=== PATIENT | male | born 1965 | race Caucasian/White ===

== ENCOUNTER 2017-10-31 18:47 | Emergency (ER) | payer MEDICAID, SELFPAY ==
[2017-10-31 18:48] VITALS: BP 153/98; PULSE 127; RESP 17; TEMP 35.8; O2SAT 97; BMI 38.7
--- NOTE | 2017-10-31 18:57 | ED.VISSUMM ---
- ER Visit Summary Date of Service: 10/31/17 Chief Complaint: Medication withdrawal History of Present Illness: The patient is a 52 M resents to the emergency department with medication withdrawal. Patient is on tramadol for his chronic pain. He states 3 days ago, he knocked the last 5 days a prescription down the drain when he was shaving. Since then, he began to have nausea, diaphoresis, diarrhea, abdominal cramping. He states he is not able to get his new prescription until 3 days from now. He denies chest pain shortness of breath. He denies any other systemic symptoms. He has not called his primary care who writes his tramadol to let them know. Physical Examination: Vital signs reviewed General: Well-nourished, well-developed Head: Normocephalic, atraumatic Eyes: Pupils equal and reactive, extraocular muscles intact Neck, supple, no lymphadenopathy Heart: Regular rate and rhythm Respiratory: No distress, clear bilaterally Abdomen: Soft, nontender, nondistended, no peritoneal signs Back: Nontender Extremities: Nontender, no edema, no cords Skin: Normal color no rash Neuro: Alert and oriented, no focal or lateralizing deficits Test Results: [] Emergency Department Course and Treatment: Patient presents in medication withdrawal. He is given 1 dose of his tramadol. I did counseling center manager him I would not be able to refill his prescription as this is a controlled substance. I did write him for Bentyl and Zofran to help with his withdrawal. I did counseling center manager him to speak with his primary care physician to see if there is anything differently can be done about refilling his prescription early. He will be discharged home. Treatment Plan: [] Disposition: Discharge Impression: 1. Medication withdrawal This note was generated with [employer] dictation software. It may contain incorrect words, spelling, and punctuation that were not noted in review of the chart prior to signing ED Disposition - Plan for ED Patient: Chief Complaint: General Illness Instructions: ED Withdrawal Narcotic Prescriptions: Ondansetron [Zofran Odt] 4 mg PO Q8H PRN PRN #10 tab PRN Reason: Nausea Dicyclomine HCl [Bentyl] 20 mg PO TIDAC #20 cap Referrals: Jaelyn Lee MD [Primary Care Provider] -
[2017-10-31] MEDS: traMADol 50 MG Tablet 100 MG PO (19:03)
[2017-10-31 19:04] VITALS: BP 148/82; PULSE 117; RESP 20; O2SAT 96
== END 2017-10-31 19:10 | disposition home or self-care (01) ==
LOC: ED 19:06
PROVIDERS: Emergency Provider Emergency Medicine; Family Provider Internal Medicine; PCP Internal Medicine
DX: F11.23 Opioid dependence with withdrawal (principal); G89.29 Other chronic pain; Z79.899 Other long term (current) drug therapy
CPT/HCPCS: 99283

== ENCOUNTER 2018-08-05 16:54 | Emergency (ER) | payer MEDICAID, SELFPAY ==
[2018-08-05 16:55] VITALS: BP 147/82; PULSE 112; RESP 20; TEMP 35.5; O2SAT 97; BMI 36.9
--- NOTE | 2018-08-05 17:15 | ED.DCSUM_ITS ---
History of Present Illness Chief Complaint: Fall Detail of Chief Complaint: Central low back pain Informant: Patient Limited by: - - Cognitive impairment Onset: Weeks Timing: Intermittent Quality: Patient with frequent falls. Most recent fall 8 days ago. Location: Residents Current Severity: Mild Maximum Severity: Moderate Worsened by: Uncertain Relieved by: Nothing Associated Symptoms: Nothing Narrative: Patient is a middle-aged male who lives by himself who presents because of pain that he localizes to the sacral region. He reports last fall was 8 days ago. He has had several falls over the past 1-2 months. He has lived alone for the past 8 months since the of his mother. He has no form of transportation. He does not make his own meals. He states he eats when he goes out to get food otherwise he does not. He has no one that checks on him. His only complaint is low back pain. Prior similar symptoms: No Recent Illness/Hospitalization: No - Past Medical History (1) Acute exacerbation of chronic low back pain Status: Chronic (2) Diabetic polyneuropathy Status: Chronic (3) Tremor Status: Chronic (4) HTN (hypertension) Status: Chronic (5) History of Ischemic Stroke Status: Chronic (6) Type II diabetes mellitus, uncontrolled Status: Chronic Past Medical History - Allergies and Home Meds Allergies/Adverse Reactions: Allergies amitriptyline Allergy (Verified 08/05/18 16:58) Other Penicillins Allergy (Verified 08/05/18 16:58) Unknown pregabalin [From Lyrica] Allergy (Verified 08/05/18 16:58) Shortness of breath temazepam Adverse Reaction (Verified 08/05/18 16:58) Other MYOCLONIC JERKING Primary Care Physician: Jaelyn Lee MD [Primary Care Provider] - Prior records reviewed: Yes Surgical History: no surgical history Lives: Alone Smoking Status: Never smoker Alcohol: None Drugs: None - Family History Maternal Family History: Reports: Diabetes, Heart Disease, Hypertension Paternal Family History: Reports: Heart Disease Review of Systems ROS: Unable to Obtain - History is limited because of cognitive impairment General: Denies: Chills, Fever, Malaise Eyes: Denies: Visual changes - bilaterally, Blurred Vision - bilaterally, Diplopia ENT: Denies: Bilateral ear pain, Rhinorrhea, Sore throat Cardiovascular: Denies: Chest pain Respiratory: Denies: Dyspnea, Cough, Dyspnea on exertion Gastrointestinal: Denies: Abdominal pain, Nausea, Vomiting, Diarrhea Genitourinary: Denies: Dysuria, Hematuria, Frequency Musculoskeletal: Reports: Back pain, Extremity Pain. Denies: Myalgias, Arthralgias, Neck pain, Swelling Skin: Denies: Rash, Abrasions, Wounds Neurological: Denies: Headache, Weakness, Parasthesia, Numbness Endocrine: Denies: Polyuria, Polydipsia Hematologic: Denies: Easy bruising, Easy bleeding Physical Exam Vital Signs/Narrative: Vital Signs Temp Pulse Resp BP Pulse Ox 08/05/18 16:55 96 F L 112 H 20 H 147/82 H 97 Inital Vital Signs reviewed: Yes General: Well nourished, Well developed, Obese, No Acute Distress Head: Normocephalic, Atraumatic. Negative for: Trauma, Tenderness Eyes: Perrl, EOMI. Negative for: Pale conjunctiva, Scleral icterus ENT: Moist mucous membranes, No rhinorrhea. Negative for: TM's clear Neck: Supple, Nontender, No lymphadenopathy, No JVD, - - Full range of motion without discomfort. Cardiovascular: Regular rate, Regular rhythm, No murmurs, Normal S1, Normal S2 Respiratory: No distress, CTA bilaterally, Chest nontender Abdomen: Soft, Nontender, Nondistended, Normal bowel sounds, No masses Back: Normal Inspection, Spinal tenderness - Pain over sacral region near the gluteal crease.. Negative for: Nontender, CVA tenderness Extremities: Tenderness, Edema, - - Multiple bruises of varying color and abrasions with varying stages of healing. Negative for: Nontender, No edema Skin: Normal color, No rash, Trauma Neurological: Alert, Cranial nerves II-XII grossly intact, Normal Strength, Normal Sensation Psychological: Normal affect Diagnostic/Tx/Re-eval Chest X-Ray - ED: 1 View X-ray of the pelvis reveals no evidence of fracture. - Medical Decision Making Consult was placed to case management because of concern patient living by himself with no support and frequent falls. X-ray of the pelvis was obtained to evaluate for fracture and he was medicated with NSAIDs since there is no contraindication. I was told by Landy the immigration case worker/licensed clinical social worker for the ER the patient declined everything. He informed her that he lives with Tigre's mother's boyfriend. Unable to verify. Patient declined Meals on Wheels. He declined assistance at home. With normal x-ray and patient moving freely even though he complains of pain will discharge with NSAID. ED Disposition - Plan for ED Patient: Disposition: Home or Assisted Living Diagnosis: Contusion of lower back and pelvis, initial encounter, Contusion, lower limb, multiple sites, Abrasion of lower extremity without infection Instructions: ED Mechanical Fall, ED Contusion Back, ED Abrasion Prescriptions: Naproxen [Naprosyn] 500 mg PO BID #14 tablet Referrals: Jaelyn Lee MD [Primary Care Provider] - 1 Week if not improving
--- NOTE | 2018-08-05 17:30 | RAD_ITS ---
STUDY: X-RAY - PELVIS REASON FOR EXAM: Male, 53 years old. Frequent falls, pelvic pain TECHNIQUE: One view of the pelvis was obtained. COMPARISON: None. FINDINGS: There is a non-specific bowel gas pattern. Normal visualized soft tissue structures. Normal bilateral iliac wings, sacroiliac joints and visualized sacrum. Normal visualized bilateral superior and inferior pubic rami. Normal pubic symphysis. Normal ischial tuberosities. Normal visualized right femoral head. Normal right acetabulum. Normal right hip joint. Normal visualized left femoral head. Normal left acetabulum. Normal left hip joint. RAD/Pelvis 1 or 2 Views IMPRESSION: Normal x-ray examination of the pelvis. Electronically Signed: Jay Jung MD at 17:59 EDT , Service support ,
[2018-08-05] MEDS: Naproxen 500 MG Tablet PO (17:36)
--- NOTE | 2018-08-05 17:45 | CM.ED ---
Social Work Assessment Referral Date: 08/05/18 Date of Assessment: 08/05/18 Informant: DR. FAGAN Reason for Consult: D/C NEEDS/RESOURCES Information obtained from: PATIENT Living Arrangements: PATIENT LIVES HOME WITH STEP FATHER, SHAQ. 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 Supports: PATIENT STATES HAS SUPPORT FROM FAMILY. Social/Family Stressors: PATIENT REPORTS MOTHER 8 MONTHS AGO. PATIENT STATES HAS BEEN HAVING FALLS FOR NO REASON. Mental Health History: PATIENT ADMITS TO HX OF DEPRESSION SINCE MOTHER'S PASSING AND WAS PRESCRIBED MEDICATION. Substance Abuse History: PATIENT DENIES ANY HX OF SUBSTANCE ABUSE. PATIENT DOES REPORT DRINKS OCCASIONALLY. Interventions: PROVIDED EDUCATION ON WAIVER REFERRAL- PATIENT DECLINED. PROVIDED EDUCATION ON MEALS ON WHEELS- PATIENT DECLINED. DISCUSSED HOME HEALTH REFERRAL- PATIENT DECLINED. Assessment: PATIENT IS A 53 Y/O SINGLE MALE WHO PRESENTS TO ED WITH FALLS. PATIENT STATES LIVES HOME WITH STEP FATHER AND IS INDEPENDENT WITH ADLS. PATIENT STATES DOES REQUIRE ASSISTANCE WITH TRANSPORTATION FROM FAMILY AND THROUGH INSURANCE-[facility]. PATIENT STATES DME IN THE HOME CONSISTS OF WALKER AND CANE. PATIENT ADMITS TO HX OF DEPRESSION SINCE MOTHER'S PASSING 8 MONTHS AGO. PATIENT FOLLOWS WITH DR. LAGUERRE FOR PRIMARY CARE. DISCUSSED POSSIBLE REFERRALS FOR WAIVER, MEALS ON WHEELS, AND HOME HEALTH. PATIENT DECLINED ALL SERVICES. D/C PLAN IS FOR HOME BEFORE. UPDATED DR. FAGAN AND NURSE ON THIS WORKER'S ASSESSMENT OF PATIENT. PLAN: HOME BEFORE. PATIENT DECLINED ANY ASSISTANCE.
[2018-08-05 18:13] VITALS: RESP 16
== END 2018-08-05 18:13 | disposition home or self-care (01) ==
PROVIDERS: Emergency Provider Emergency Medicine; Family Provider Internal Medicine; PCP Internal Medicine
DX: S30.0XXA Contusion of lower back and pelvis, initial encounter (principal); S80.10XA Contusion of unspecified lower leg, initial encounter; S80.819A Abrasion, unspecified lower leg, initial encounter; W19.XXXA Unspecified fall, initial encounter; Y93.9 Activity, unspecified; Y92.9 Unspecified place or not applicable; R29.6 Repeated falls; E11.42 Type 2 diabetes mellitus with diabetic polyneuropathy; I10 Essential (primary) hypertension; Z79.84 Long term (current) use of oral hypoglycemic drugs; Z79.899 Other long term (current) drug therapy; Z86.73 Personal history of transient ischemic attack (TIA), and cerebral infarction without residual deficits
CPT/HCPCS: 72170; 99282

== ENCOUNTER 2018-09-09 07:15 | Observation (INO) | payer MEDICAID, SELFPAY ==
[2018-09-09] VITALS (9 sets, daily range): BP systolic 147–183; BP diastolic 86–109; PULSE 102–140; RESP 14–20; TEMP 36.4–37.1; O2SAT 93–100; BMI 36.8; BMI 36.6
--- NOTE | 2018-09-09 07:25 | RAD_ITS ---
STUDY: X-RAY CHEST REASON FOR EXAM: Male, 53 years old. Chest pain and cough, wheezing TECHNIQUE: PA and 2 lateral views of the chest. COMPARISON: 10/30/2016 FINDINGS: EKG leads overlie the chest The lungs are clear and expanded. There is no demonstrated pleural abnormality. Normal size heart. Normal mediastinum and robles. Normal visualized pulmonary arteries. Normal visualized aortic arch and descending thoracic aorta. There are diffuse degenerative changes of the visualized thoracic spine. Normal visualized ribs, clavicles, and shoulders. There is no demonstrated abnormality of the visualized soft tissue structures of the upper abdomen. RAD/Chest PA and Lateral IMPRESSION: No acute pulmonary process Electronically Signed: Mitesh Kyle MD at 8:50 EDT , Service support ,
--- NOTE | 2018-09-09 07:25 | EKG12_ITS ---
Test Reason : N/V Blood Pressure : / mmHG Vent. Rate : 127 BPM Atrial Rate : 127 BPM P-R Int : 132 ms QRS Dur : 080 ms QT Int : 316 ms P-R-T Axes : 039 -70 033 degrees QTc Int : 459 ms Sinus tachycardia Left anterior fascicular block Poor R-Wave Progression Abnormal ECG Confirmed by ESTEFANIA ROY, SHARI ([id number]), writer editor NORM BRYANT ([id number]) on 09/12/2018 11:41:12 AM Referred By: Jono Espinoza Confirmed By:SHARI MAC MD
--- NOTE | 2018-09-09 07:28 | ED.VIS.GEN ---
History of Present Illness Chief Complaint: Nausea/Vomiting Detail of Chief Complaint: Chest pain, shortness of breath, cough Informant: Patient, Friend Onset: Month(s) - Onset of symptoms 3 to 4 months ago Context: - - Patient unable to recall. He is a poor informant. There is a positional component, there is a component related to p.o. intake and there is a component related to coughing. Timing: Continuous - The heartburn that radiates to his left shoulder is now constant. He also reports nausea and vomiting for months. He states emesis is now brown. Quality: Read narrative Location: Central chest Current Severity: Mild Maximum Severity: Moderate Worsened by: P.o. intake, change in position and coughing Relieved by: Nothing Associated Symptoms: Burning sensation in throat when supine Narrative: Patient is a middle-age male who is a poor informant. He denied medical problems at first. After review of medications he was asked if he has history of hypertension, diabetes and cholesterol and he acknowledges on medication for all of these. He states he is taking [id number] antacids with no improvement. He is unable to determine if his symptoms are worse with any types of food. He denied fever, chills night sweats. He denies rhinorrhea, congestion postnasal drainage. He does report cough. He states he is a non-smoker. He states he has a burning sensation in his chest and points to the sternal area that radiates to the left shoulder and arm. He does report nausea and vomiting but does not necessarily relate this to the chest burning. He denies blood in his emesis or coffee-ground appearing emesis. He denies black or maroon stool. Prior similar symptoms: No Recent Illness/Hospitalization: No - Past Medical History (1) History of hypercholesterolemia Status: Chronic (2) Nausea and vomiting Status: Acute (3) Diabetic polyneuropathy Status: Chronic (4) HTN (hypertension) Status: Chronic (5) History of Ischemic Stroke Status: Chronic Past Medical History - Allergies and Home Meds Allergies/Adverse Reactions: Allergies amitriptyline Allergy (Verified 09/09/18 07:16) Other Penicillins Allergy (Verified 09/09/18 07:16) Unknown pregabalin [From Lyrica] Allergy (Verified 09/09/18 07:16) Shortness of breath temazepam Adverse Reaction (Verified 09/09/18 07:16) Other MYOCLONIC JERKING Primary Care Physician: Jaelyn Lee MD [Primary Care Provider] - Prior records reviewed: Yes Surgical History: no surgical history Lives: Roommate Smoking Status: Never smoker Alcohol: None Drugs: None - Family History Maternal Family History: Reports: Diabetes, Heart Disease, Hypertension Paternal Family History: Reports: Heart Disease Review of Systems General: Reports: Subjective. Denies: Chills, Fever, Sweats Eyes: Denies: Visual changes - bilaterally, Blurred Vision - bilaterally, Diplopia ENT: Reports: - - dry mouth Cardiovascular: Reports: Chest pain. Denies: Palpitations, Heart racing Respiratory: Reports: Dyspnea, Cough, Sputum. Denies: Dyspnea on exertion, Orthopnea, Paroxysmal nocturnal dyspnea, -, - Gastrointestinal: Reports: Abdominal pain, Nausea, Vomiting. Denies: Diarrhea, Constipation, Melena, Hematochezia, -, - Genitourinary: Denies: Dysuria, Hematuria, Frequency Musculoskeletal: Denies: Myalgias, Arthralgias, Neck pain, Back pain, Swelling, Extremity Pain Skin: Denies: Rash, Wounds Neurological: Reports: Weakness. Denies: Headache, Parasthesia, Numbness Psych: Reports: Depression Endocrine: Reports: Polyuria. Denies: Polydipsia Hematologic: Denies: Easy bruising, Easy bleeding Allergy: Denies: Uticaria, Swelling of the mouth Physical Exam Vital Signs/Narrative: Vital Signs Temp Pulse Resp BP Pulse Ox 09/09/18 07:16 98.7 F 140 H 18 147/98 H 97 Inital Vital Signs reviewed: Yes General: Well nourished, Well developed, Unkempt, No Acute Distress Head: Normocephalic, Atraumatic Eyes: Perrl, EOMI. Negative for: Pale conjunctiva, Scleral icterus ENT: Moist mucous membranes, No rhinorrhea, TM's clear, - - Poor dentition with multiple caries with exposure of dentin and pulp Neck: Supple, Nontender, No lymphadenopathy, No JVD Cardiovascular: Regular rate, Regular rhythm, No murmurs, Normal S1, Normal S2 Respiratory: No distress, Chest nontender, Wheezing. Negative for: CTA bilaterally, Diminished Abdomen: Soft, Nondistended, Normal bowel sounds, No masses, Tender. Negative for: Hepatomegaly, Splenomegaly, Mass, Pulsatile mass Back: Nontender, Normal Inspection. Negative for: CVA tenderness Extremities: Nontender, Edema - 1+ pedal edema and distal right and left leg Skin: Normal color, No rash. Negative for: Cyanosis, Jaundice Neurological: Alert, Oriented x3, Cranial nerves II-XII grossly intact, Normal Strength, Normal Sensation Psychological: - - Affect is flat. Diagnostic/Tx/Re-eval Chest X-Ray - ED: 2 View, Read by ED Physician, Unchanged - Unchanged from x-ray October 20, 2016., Normal, Heart, Mediastinum, Bony Structures, No Acute Disease, Chronic Changes, - - X-ray interpreted by me at 0840. Impressions Chest X-Ray 09/09/18 07:25 IMPRESSION: No acute pulmonary process Electronically Signed: Mitesh Kyle MD at 8:50 EDT , Service support , 09/09/18 07:25 Chest PA and Lateral [RAD] Stat Laboratory Results 09/09/18 09/09/18 09/09/18 08:05 08:05 09:30 WBC 16.5 H RBC 5.52 Hgb 16.5 Hct 46.3 MCV 83.9 MCH 29.9 MCHC 35.6 RDW 13.1 RDW Differential 39.1 Plt Count 324 MPV 8.8 Immature Gran % (Auto) 0.200 Neut % (Auto) 79.3 H Lymph % (Auto) 12.8 L [place] % (Auto) 7.2 Eos % (Auto) 0.1 Baso % (Auto) 0.4 Absolute Neuts (auto) 13.1 H Absolute Lymphs (auto) 2.11 Total Counted Not Reportable Sodium 127 L Potassium 3.9 Chloride 92 L Carbon Dioxide 19.0 L Anion Gap 16 H BUN 15 Creatinine 1.19 Estim Creat Clear Calc 70.96 Est GFR (MDRD) Af Amer 82 Est GFR (MDRD) Non-Af 68 BUN/Creatinine Ratio 12.6 Glucose 520 H* Calcium 9.2 Total Bilirubin 0.80 Direct Bilirubin 0.13 AST 10 L ALT 13 L Alkaline Phosphatase 117 Troponin I < 0.015 Total Protein 8.7 H Albumin 3.8 Globulin 4.9 H Lipase 112 Acetone Level MODERATE H - Rhythm Strip Rhythm Strip: Sinus Tach Rate: 135 Ectopy: None - EKG Initial EKG Interpretation: Sinus Tachycardia - Ventricular rate is 127. [place] interval is normal. Respirations normal. QT interval is normal. [place] to left and he has findings consistent with left anterior fascicular block. - Medical Decision Making Patient with multiple medical problems and not a good informant. His history is suggestive of GI versus cardiac etiology. This may represent reflux, esophagitis or gastritis. This could represent cardiac chest pain. Patient has wheezing and may represent congestive heart failure since he does have pedal edema and reports difficulty lying flat for numerous reasons. Therefore a chest x-ray was obtained. He received an albuterol treatment for his wheezing. EKG to assess for cardiac ischemia. Also he is tachycardic on the monitor. Will obtain CBC to assess H&H. Basic metabolic panel to assess electrolytes, CO2 and anion gap as well as renal function since her history of acute kidney injury and he reports vomiting for some time. Also if there is elevated BUN to creatinine ratio is brown emesis may represent blood. Troponin was obtained since he reports pain rating to his left shoulder and arm and could represent cardiac ischemia. This also could represent a hiatal hernia or gastritis etc. Patient received a liter of normal saline wide open. He was started on insulin drip. Hospitalist was paged for admission to PCU stepdown. Patient with mild DKA. - Critical Care Time Critical care time (excluding procedures): 30-74 minutes - 32 minutes, Discussing w/Patient &/or Family/Employment Supervisor, Discussing w/Consultants, Arranging Admission or Transfer ED Disposition - Plan for ED Patient: Disposition: Acute Care Hospital [facility] Diagnosis: DKA, type 2, Sinus tachycardia by electrocardiogram, Bronchospasm, Hypertension associated with diabetes, Nausea and vomiting Referrals: Jaelyn Lee MD [Primary Care Provider] -
--- NOTE | 2018-09-09 07:32 | ED.DCSUM_ITS ---
History of Present Illness Chief Complaint: Nausea/Vomiting Detail of Chief Complaint: Chest pain, shortness of breath, cough Informant: Patient, Friend Onset: Month(s) - Onset of symptoms 3 to 4 months ago Context: - - Patient unable to recall. He is a poor informant. There is a positional component, there is a component related to p.o. intake and there is a component related to coughing. Timing: Continuous - The heartburn that radiates to his left shoulder is now constant. He also reports nausea and vomiting for months. He states emesis is now brown. Quality: Read narrative Location: Central chest Current Severity: Mild Maximum Severity: Moderate Worsened by: P.o. intake, change in position and coughing Relieved by: Nothing Associated Symptoms: Burning sensation in throat when supine Narrative: Patient is a middle-age male who is a poor informant. He denied medical problems at first. After review of medications he was asked if he has history of hypertension, diabetes and cholesterol and he acknowledges on medication for all of these. He states he is taking [id number] antacids with no improvement. He is unable to determine if his symptoms are worse with any types of food. He denied fever, chills night sweats. He denies rhinorrhea, congestion postnasal drainage. He does report cough. He states he is a non- smoker. He states he has a burning sensation in his chest and points to the sternal area that radiates to the left shoulder and arm. He does report nausea and vomiting but does not necessarily relate this to the chest burning. He denies blood in his emesis or coffee-ground appearing emesis. He denies black or maroon stool. Prior similar symptoms: No Recent Illness/Hospitalization: No - Past Medical History (1) History of hypercholesterolemia Status: Chronic (2) Nausea and vomiting Status: Acute (3) Diabetic polyneuropathy Status: Chronic (4) HTN (hypertension) Status: Chronic (5) History of Ischemic Stroke Status: Chronic Past Medical History - Allergies and Home Meds Allergies/Adverse Reactions: Allergies amitriptyline Allergy (Verified 09/09/18 07:16) Other Penicillins Allergy (Verified 09/09/18 07:16) Unknown pregabalin [From Lyrica] Allergy (Verified 09/09/18 07:16) Shortness of breath temazepam Adverse Reaction (Verified 09/09/18 07:16) Other MYOCLONIC JERKING Primary Care Physician: Jaelyn Lee MD [Primary Care Provider] - Prior records reviewed: Yes Surgical History: no surgical history Lives: Roommate Smoking Status: Never smoker Alcohol: None Drugs: None - Family History Maternal Family History: Reports: Diabetes, Heart Disease, Hypertension Paternal Family History: Reports: Heart Disease Review of Systems General: Reports: Subjective. Denies: Chills, Fever, Sweats Eyes: Denies: Visual changes - bilaterally, Blurred Vision - bilaterally, Diplopia ENT: Reports: - - dry mouth Cardiovascular: Reports: Chest pain. Denies: Palpitations, Heart racing Respiratory: Reports: Dyspnea, Cough, Sputum. Denies: Dyspnea on exertion, Orthopnea, Paroxysmal nocturnal dyspnea, -, - Gastrointestinal: Reports: Abdominal pain, Nausea, Vomiting. Denies: Diarrhea, Constipation, Melena, Hematochezia, -, - Genitourinary: Denies: Dysuria, Hematuria, Frequency Musculoskeletal: Denies: Myalgias, Arthralgias, Neck pain, Back pain, Swelling, Extremity Pain Skin: Denies: Rash, Wounds Neurological: Reports: Weakness. Denies: Headache, Parasthesia, Numbness Psych: Reports: Depression Endocrine: Reports: Polyuria. Denies: Polydipsia Hematologic: Denies: Easy bruising, Easy bleeding Allergy: Denies: Uticaria, Swelling of the mouth Physical Exam Vital Signs/Narrative: Vital Signs Temp Pulse Resp BP Pulse Ox 09/09/18 07:16 98.7 F 140 H 18 147/98 H 97 Inital Vital Signs reviewed: Yes General: Well nourished, Well developed, Unkempt, No Acute Distress Head: Normocephalic, Atraumatic Eyes: Perrl, EOMI. Negative for: Pale conjunctiva, Scleral icterus ENT: Moist mucous membranes, No rhinorrhea, TM's clear, - - Poor dentition with multiple caries with exposure of dentin and pulp Neck: Supple, Nontender, No lymphadenopathy, No JVD Cardiovascular: Regular rate, Regular rhythm, No murmurs, Normal S1, Normal S2 Respiratory: No distress, Chest nontender, Wheezing. Negative for: CTA bilaterally, Diminished Abdomen: Soft, Nondistended, Normal bowel sounds, No masses, Tender. Negative for: Hepatomegaly, Splenomegaly, Mass, Pulsatile mass Back: Nontender, Normal Inspection. Negative for: CVA tenderness Extremities: Nontender, Edema - 1+ pedal edema and distal right and left leg Skin: Normal color, No rash. Negative for: Cyanosis, Jaundice Neurological: Alert, Oriented x3, Cranial nerves II-XII grossly intact, Normal Strength, Normal Sensation Psychological: - - Affect is flat. Diagnostic/Tx/Re-eval Chest X-Ray - ED: 2 View, Read by ED Physician, Unchanged - Unchanged from x-ray October 20, 2016., Normal, Heart, Mediastinum, Bony Structures, No Acute Disease, Chronic Changes, - - X-ray interpreted by me at 0840. Impressions Chest X-Ray 09/09/18 07:25 IMPRESSION: No acute pulmonary process Electronically Signed: Mitesh Kyle MD at 8:50 EDT , Service support , 09/09/18 07:25 Chest PA and Lateral [RAD] Stat Laboratory Results 09/09/18 09/09/18 09/09/18 08:05 08:05 09:30 WBC 16.5 H RBC 5.52 Hgb 16.5 Hct 46.3 MCV 83.9 MCH 29.9 MCHC 35.6 RDW 13.1 RDW Differential 39.1 Plt Count 324 MPV 8.8 Immature Gran % (Auto) 0.200 Neut % (Auto) 79.3 H Lymph % (Auto) 12.8 L Mcdonough % (Auto) 7.2 Eos % (Auto) 0.1 Baso % (Auto) 0.4 Absolute Neuts (auto) 13.1 H Absolute Lymphs (auto) 2.11 Total Counted Not Reportable Sodium 127 L Potassium 3.9 Chloride 92 L Carbon Dioxide 19.0 L Anion Gap 16 H BUN 15 Creatinine 1.19 Estim Creat Clear Calc 70.96 Est GFR (MDRD) Af Amer 82 Est GFR (MDRD) Non-Af 68 BUN/Creatinine Ratio 12.6 Glucose 520 H* Calcium 9.2 Total Bilirubin 0.80 Direct Bilirubin 0.13 AST 10 L ALT 13 L Alkaline Phosphatase 117 Troponin I < 0.015 Total Protein 8.7 H Albumin 3.8 Globulin 4.9 H Lipase 112 Acetone Level MODERATE H - Rhythm Strip Rhythm Strip: Sinus Tach Rate: 135 Ectopy: None - EKG Initial EKG Interpretation: Sinus Tachycardia - Ventricular rate is 127. NC interval is normal. Respirations normal. QT interval is normal. [place] to left and he has findings consistent with left anterior fascicular block. - Medical Decision Making Patient with multiple medical problems and not a good informant. His history is suggestive of GI versus cardiac etiology. This may represent reflux, esophagitis or gastritis. This could represent cardiac chest pain. Patient has wheezing and may represent congestive heart failure since he does have pedal edema and reports difficulty lying flat for numerous reasons. Therefore a chest x-ray was obtained. He received an albuterol treatment for his wheezing. EKG to assess for cardiac ischemia. Also he is tachycardic on the monitor. Will obtain CBC to assess H&H. Basic metabolic panel to assess electrolytes, CO2 and anion gap as well as renal function since her history of acute kidney injury and he reports vomiting for some time. Also if there is elevated BUN to creatinine ratio is brown emesis may represent blood. Troponin was obtained since he reports pain rating to his left shoulder and arm and could represent cardiac ischemia. This also could represent a hiatal hernia or gastritis etc. Patient received a liter of normal saline wide open. He was started on insulin drip. Hospitalist was paged for admission to PCU stepdown. Patient with mild DKA. - Critical Care Time Critical care time (excluding procedures): 30-74 minutes - 32 minutes, Discussing w/Patient &/or Family/Care Transition Coordinator, Discussing w/Consultants, Arranging Admission or Transfer ED Disposition - Plan for ED Patient: Disposition: Acute Care Hospital [facility] Diagnosis: DKA, type 2, Sinus tachycardia by electrocardiogram, Bronchospasm, Hypertension associated with diabetes, Nausea and vomiting Referrals: Jaelyn Lee MD [Primary Care Provider] -
[2018-09-09] MEDS: Albuterol 2.5 MG/3 ML VIAL.NEB. INHALATION (07:40)
[2018-09-09 08:32] LABS: Absolute Lymphocyte Count 2.11 X10^3/ul (0.83-4.51); Absolute Neutrophil Count 13.1 X10^3/uL (2.0-7.7); Basophil# 0.06 X10^3/uL; Basophil% 0.4 % (0-1); Eosinophil# 0.01 X10^3/uL; Eosinophils% 0.1 % (0-5); Hematocrit 46.3 % (40-54); Hemoglobin 16.5 g/dl (13.0-16.5); Lymphocyte # 2.11 X10^3/ul (4.0); Lymphocyte % 12.8 % (19-41); Mean Corp Hgb Conc 35.6 g/gl (32-36); Mean Corpuscular Hgb 29.9 pg (27.0-32.0); Mean Corpuscular Volume 83.9 fL (80-94); Mean Platelet Vol. 8.8 fl (6.2-12.0); Monocyte# 1.18 X10^3/uL; Monocyte% 7.2 % (0-10); Neutrophil % 79.3 % (47-70); Platelet Count 324 K/mm3 (150-450); RBC Distribution Width CV 13.1 % (11.6-14.6); RBC Distribution Width SD 39.1 fl (35.1-43.9); Red Blood Count 5.52 M/mm3 (4.6-6.2); White Blood Count 16.5 K/mm3 (4.4-11.0)
[2018-09-09 08:34] LABS: POSITIVE COUNT NO; POSITIVE DIFFERENTIAL NO; POSITIVE MORPHOLOGY NO
[2018-09-09 08:50] LABS: AST(SGOT) 10 U/L (15-37); Alanine Aminotransfer ALT/SGPT 13 U/L (16-61); Albumin, Serum 3.8 g/dL (3.2-5.0); Alkaline Phosphatase 117 U/L (45-117); Anion Gap 16 (5-15); BUN 15 mg/dL (7-18); BUN/Creat Ratio 12.6 RATIO (10-20); Bilirubin, Direct 0.13 mg/dL (0.00-0.30); Calcium,Total 9.2 mg/dL (8.5-10.1); Chloride 92 mmol/L (98-107); Creatinine, Serum 1.19 mg/dL (0.70-1.30); EST Glomerular Filtration Rate 68 mL/min (>60); Est Glom Filt Rate - Afr Amer 82 mL/min (>60); Estimated Creatinine Clearance 70.96 ml/min; Globulin 4.9 g/dL (2.2-4.2); Glucose 520 mg/dL (74-106); Lipase 112 U/L (73-393); Potassium 3.9 mmol/L (3.5-5.1); Protein, Total 8.7 g/dL (6.4-8.2); Sodium Level 127 mmol/L (136-145)
[2018-09-09] MEDS: Morphine 4 MG/ML Syringe IV (09:22)
[2018-09-09] MEDS: 0.9% Normal Saline 1,000 ML 1000 ML IV ×2 (09:23→10:32)
[2018-09-09] MEDS: Metoclopramide 10 MG/2 ML Vial 5 MG IV (09:23)
--- NOTE | 2018-09-09 10:20 | PCM.HP.STD ---
Problem List (1) Bronchospasm Status: Acute (2) DKA, type 2 Status: Acute (3) Hypertension associated with diabetes Status: Chronic (4) Nausea and vomiting Status: Acute Qualifiers: Vomiting type: unspecified Vomiting Intractability: non-intractable Qualified Code(s): R11.2 - Nausea with vomiting, unspecified (5) Sinus tachycardia by electrocardiogram Status: Acute (6) Chronic low back pain Status: Chronic Qualifiers: Back pain laterality: bilateral Sciatica presence: without sciatica Qualified Code(s): M54.5 - Low back pain; G89.29 - Other chronic pain (7) Fall Status: Chronic Qualifiers: Encounter type: initial encounter Qualified Code(s): W19.XXXA - Unspecified fall, initial encounter (8) Diabetic polyneuropathy Status: Chronic Qualifiers: Diabetes mellitus type: type 2 Qualified Code(s): E11.42 - Type 2 diabetes mellitus with diabetic polyneuropathy (9) HTN (hypertension) Status: Chronic Qualifiers: Hypertension type: essential hypertension Qualified Code(s): I10 - Essential (primary) hypertension (10) History of Ischemic Stroke Status: Chronic (11) History of edema Status: Chronic (12) History of hypercholesterolemia Status: Chronic (13) Tremor Status: Chronic (14) Type II diabetes mellitus, uncontrolled Status: Chronic History of Present Illness Date of Admission: 09/09/18 Chief Complaint: Epigastric discomfort The patient is a 53 year old M past medical history significant diabetes mellitus type 2 on glipizide and metformin who presented with epigastric discomfort. Patient reported not having taking his medications for the past couple of days due to epigastric discomfort with associated intractable nausea. Patient also did complain of progressive feeling of weakness as well as some shortness of breath. Finally presented to the emergency department and assessment of mild DKA was made treatment initiated with aggressive IV fluid resuscitation as well as insulin and admitted for further inpatient management. Past Medical History Past Medical History (Chronic Problems): Chronic Problems History of hypercholesterolemia (Chronic) Hypertension associated with diabetes (Chronic) Tremor (Chronic) History of Ischemic Stroke (Chronic) HTN (hypertension) (Chronic) History of edema (Chronic) Diabetic polyneuropathy (Chronic) Chronic low back pain (Chronic) Fall (Chronic) Type II diabetes mellitus, uncontrolled (Chronic) Allergies amitriptyline Allergy (Verified 09/09/18 07:16) Other Penicillins Allergy (Verified 09/09/18 07:16) Unknown pregabalin [From Lyrica] Allergy (Verified 09/09/18 07:16) Shortness of breath temazepam Adverse Reaction (Verified 09/09/18 07:16) Other MYOCLONIC JERKING Home Medications: Ambulatory Orders Medication Instructions Recorded Gabapentin [Neurontin] 600 mg PO TIDCM 01/07/14 Metformin HCl [Glucophage] 1,000 mg PO BIDCM 01/07/14 Glimepiride [Amaryl] 2 mg PO DAILY 10/08/14 Aspirin/Acetaminophen/Caffeine 1 capsule PO DAILY PRN PRN 05/09/16 [Excedrin Extra Strength Caplet] traMADol [Ultram] 50 mg PO DAILY 10/30/16 Atorvastatin Calcium 20 mg PO QHS 09/09/18 Losartan Potassium 25 mg PO DAILY 09/09/18 Surgical History: no surgical history Lives: Roommate Smoking Status: Never smoker Alcohol: None Drugs: None - *Family History Maternal History Items: Diabetes, Heart Disease, Hypertension Paternal History Items: Heart Disease Review of Systems Constitutional: Reports: Anorexia, Weakness, Fatigue HEENT: Denies: Head Aches, Sinus Congestion, Sinus Drainage Respiratory: Reports: Shortness of Breath Gastrointestinal: Reports: Abdominal Pain, Dyspepsia, Nausea, Vomiting Genitourinary: Denies: Dysuria, Frequency, Hematuria, Urgency Musculoskeletal: Denies: Joint Pain, Joint Tenderness Skin: Denies: Rash Neurological: Denies: Focal weakness, Numbness, Tingling Psychiatric: Denies: Homicidal Ideations, Suicidal Ideations Hematologic/ Lymphatic: Denies: Easy Bruising, Easy Bleeding VTE Information - Inpt Only VTE Present on Admission: No VTE Mechan Device Prophylaxis: Knee High SHYANN Hose VTE Pharm Prophylaxis ordered?: Yes Patient Problems: Active and Suspected Problems DKA, type 2 (Acute) Sinus tachycardia by electrocardiogram (Acute) Bronchospasm (Acute) Nausea and vomiting (Acute) Objective: GENERAL: Appears ill looking HEENT: Atraumatic; moist oral mucosa EYES; Anicteric, Normal Conjunctiva NECK; supple, normal thyroid, no distended JVD. RESPIRATORY: Diminished to auscultation bilaterally, CARDIOVASCULAR: Regular S1 S2, tachycardic GI: soft, non-tender, normoactive bowel sounds, : No Renal angle tenderness; EXTREMITIES: No edema, no clubbing, no cyanosis. MUSCULOSKELETAL: No Joint Tenderness; NEURO: Awake; no lateralizing signs. SKIN: No Rash PSYCH; Normal affect - Physical Exam Vital Signs Temp Pulse Resp BP Pulse Ox 98.7 F 129 H 14 172/109 H 93 09/09/18 07:16 09/09/18 09:16 09/09/18 09:16 09/09/18 09:16 09/09/18 09:16 Oxygen Delivery Method Room Air Weight: 113 kg Body Mass Index (BMI) 36.8 Laboratory Tests Past 24 Hrs 09/09/18 09/09/18 09/09/18 08:05 08:05 09:30 WBC 16.5 H RBC 5.52 Hgb 16.5 Hct 46.3 MCV 83.9 MCH 29.9 MCHC 35.6 RDW 13.1 RDW Differential 39.1 Plt Count 324 MPV 8.8 Immature Gran % (Auto) 0.200 Neut % (Auto) 79.3 H Lymph % (Auto) 12.8 L [place] % (Auto) 7.2 Eos % (Auto) 0.1 Baso % (Auto) 0.4 Absolute Neuts (auto) 13.1 H Absolute Lymphs (auto) 2.11 Total Counted Not Reportable Sodium 127 L Potassium 3.9 Chloride 92 L Carbon Dioxide 19.0 L Anion Gap 16 H BUN 15 Creatinine 1.19 Estim Creat Clear Calc 70.96 Est GFR (MDRD) Af Amer 82 Est GFR (MDRD) Non-Af 68 BUN/Creatinine Ratio 12.6 Glucose 520 H* Calcium 9.2 Total Bilirubin 0.80 Direct Bilirubin 0.13 AST 10 L ALT 13 L Alkaline Phosphatase 117 Troponin I < 0.015 Total Protein 8.7 H Albumin 3.8 Globulin 4.9 H Lipase 112 Acetone Level MODERATE H Assessment/Plan All Active Problems DKA, type 2 (Acute) Sinus tachycardia by electrocardiogram (Acute) Bronchospasm (Acute) Acute exacerbation of chronic low back pain (Resolved) JENNIFER (acute kidney injury) (Resolved) Nausea and vomiting (Acute) SIRS (systemic inflammatory response syndrome) (Resolved) Patient is a 53-year-old who presented with epigastric discomfort found to have elevated blood glucose levels greater than 500 with anion gap of 16 and small acetone and assessment of mild diabetic ketoacidosis made admitted for subsequent management 1. Diabetic ketoacidosis patient has been admitted for inpatient management consisting of aggressive IV fluid resuscitation correction of electrolyte abnormalities and a demonstration of insulin. Ordered every 4 Accu-Cheks with sliding scale coverage in addition to patient being placed on long-acting insulin 2. Diabetes mellitus type 2 with complications including DKA management as discussed above patient's oral anti-diabeyic agent held 3. Epigastric discomfort do suspect gastritis patient placed on PPI 4. Sinus tachycardia secondary to dehydration from #1 5. Hypertension-blood pressure controlled, home medications continued with dose adjustment as needed 5. Chronic back pain 6. Obesity with BMI of 36 weight loss advised 7. DVT prophylaxis Lovenox Code Visit Inpatient E&M: 26086 Init Hosp L3
[2018-09-09] MEDS: Insulin Lispro 100 UNIT/ML INSULN.PEN 7 UNIT SC (10:32)
--- NOTE | 2018-09-09 10:45 | ED.RN ---
doses of insulin clarified with dr. goodson
[2018-09-09] MEDS: Insulin Lispro 100 UNIT/ML INSULN.PEN 20 UNIT SC (10:53)
[2018-09-09 11:00] LABS: Bedside Glucose 454 mg/dL (70-110)
[2018-09-09 11:50] LABS: Bedside Glucose 340 mg/dL (70-110)
[2018-09-09] MEDS: Insulin Lispro 100 UNIT/ML INSULN.PEN 10 UNIT SQ ×2 (12:15→16:15)
[2018-09-09] MEDS: Glucerna Shake 120 ML LIQUID PO ×2 (12:18→16:18)
[2018-09-09] MEDS: Gabapentin 600 MG Tablet PO ×2 (12:18→17:00)
[2018-09-09 12:31] LABS: Anion Gap 13 (5-15); BUN 15 mg/dL (7-18); BUN/Creat Ratio 13.6 RATIO (10-20); Calcium,Total 8.6 mg/dL (8.5-10.1); Chloride 99 mmol/L (98-107); EST Glomerular Filtration Rate 74 mL/min (>60); Est Glom Filt Rate - Afr Amer 90 mL/min (>60); Estimated Creatinine Clearance 76.77 ml/min; Glucose 383 mg/dL (74-106); Lipase 94 U/L (73-393); Potassium 4.4 mmol/L (3.5-5.1); Sodium Level 133 mmol/L (136-145)
[2018-09-09] MEDS: Insulin Lispro 100 UNIT/ML INSULN.PEN SQ ×3 (14:10→22:09)
[2018-09-09 14:20] LABS: Bedside Glucose 385 mg/dL (70-110)
--- NOTE | 2018-09-09 14:25 | CASEMGMT ---
RN CM INFANT LEAD TEACHER CM to room to meet with patient for initial transition planning/care coordination assessment. RN JANENE introduced self and role at [facility]. Pt voices understanding and consents to assessment at this time. Pt resting in bed in no distress at this time. Pt is A/O at this time and answers all questions appropriately. Care providers, pharmacy, and demographics verified/updated at this time. PCP: Jesus Specialists: Denies Preferred Pharmacy: [facility] Insurance: [employer] [facility] Prescription Benefit: Yes Living Will/HPOA: [facility] does not have LW or HCPOA and would like to speak with SW to complete paperwork. NOA Sawyer, notified. LNOK: Sister, Svetlana Living Arrangements: Lives in one-story home w/a basement. 2 steps to enter. States his step-father, Tigre Cook, lives with him. He states his mother has and he considers Tigre as more of a friend than a step-father. States he is independent with personal ADL's, does his own cooking/grocery shopping, and home mgmt tasks. States Tigre does help as well w/home mgmt tasks/chores. Transportation: Tigre usually provides transportation. States his sister also drives. States either Tigre or his sister can take him home on d/c. DME: States has the following DME: cane, walker, hand-held shower, glucometer. States he has all the supplies for the glucometer and works properly. Pt states no need for further DME at this time. HHC/SNF: No history of SNF or HHC. Denies needs for HHC. Also discussed CCN and the diabetic clinic. Pt also declines CCN. He states he does not like anyone coming into the home and would prefer to do out-pt diabetic clinic. Given Diabetic Clinic Rac Card and made aware to talk to Dr Lee at his next appt about the diabetic clinic so referral can be sent. Pt voices understanding. Pt wishes to return home and states has no concerns with going home at time of discharge. CM to follow for further discharge planning/needs. Pt voices no further concerns/needs at this time. Advised pt to ask for CM if any further questions/concerns/needs arise. Voices understanding. PLAN: Home SW Consult for AD. Serge BELTRE RN, CM
--- NOTE | 2018-09-09 14:54 | CASEMGMT ---
Addendum entered by Leti Shaikh 09/09/18 15:21: SW met with pt, introduced self and role at [facility]. Pt is alert and orientated x3. SW educated pt on advanced directives, pt states he hasn't talked to anybody in regards to informing them about naming HCPOA. SW encouraged pt to talk to family/friends whoever he wishes to name HCPOA before completing documents. SW provided pt with Social Service Rac Card, informed pt that he may call number when he discharges to complete documents if documents are unable to be completed at [facility]. Original Note: Social Work Note SW received referral for advanced directives. SW attempted to meet with pt, Speech Therapy currently in room. This worker will attempt to see pt before this worker leaves for the day and when ST is no longer with pt. If SW leaves and ST is still with pt, SW tomorrow can follow up with pt in regards to advanced directives. Leti Shaikh DATABASE PROGRAMMER, INVENTORY CONTROL ASSISTANT
--- NOTE | 2018-09-09 16:00 | CASEMGMT ---
Social Work Note NOA updated that pt's mom recently . SW met with pt. Pt spent much time talking about his mother that last year and how since she his health has been declining. Pt states that he lives with his mother's and they have a good relationship and he is supportive. Pt also states that his sister lives close to him. SW asked pt if he feels safe in his home and pt states pretty much except sometimes I call my sister or her son Danny and they don't answer when I call. Pt also states that he pretty much has everything he needs at home. Pt denied additional needs or concerns at this time. Pt denied any counseling resources or bereavement resources. SW offered support to pt, encouraged pt to ask for SW or CM if he thinks of anything that he may need. Pt states understanding. Leti Shaikh PROTOTYPE SPECIAL BUILD, MEMORIAL ADVISER
[2018-09-09 16:03] LABS: Anion Gap 9 (5-15); BUN 14 mg/dL (7-18); BUN/Creat Ratio 14.5 RATIO (10-20); Calcium,Total 8.1 mg/dL (8.5-10.1); Chloride 101 mmol/L (98-107); Creatinine, Serum 0.97 mg/dL (0.70-1.30); EST Glomerular Filtration Rate 86 mL/min (>60); Est Glom Filt Rate - Afr Amer 104 mL/min (>60); Estimated Creatinine Clearance 87.06 ml/min; Glucose 310 mg/dL (74-106); Potassium 3.9 mmol/L (3.5-5.1); Sodium Level 132 mmol/L (136-145)
[2018-09-09 16:30] LABS: Bedside Glucose 298 mg/dL (70-110)
[2018-09-09 20:02] LABS: Anion Gap 8 (5-15); BUN 14 mg/dL (7-18); BUN/Creat Ratio 14.1 RATIO (10-20); Calcium,Total 7.8 mg/dL (8.5-10.1); Chloride 102 mmol/L (98-107); Creatinine, Serum 0.99 mg/dL (0.70-1.30); EST Glomerular Filtration Rate 83 mL/min (>60); Est Glom Filt Rate - Afr Amer 101 mL/min (>60); Glucose 246 mg/dL (74-106); Potassium 3.3 mmol/L (3.5-5.1); Sodium Level 134 mmol/L (136-145)
[2018-09-09] MEDS: Atorvastatin Calcium 20 MG Tablet PO (22:02)
[2018-09-09 22:35] LABS: Bedside Glucose 257 mg/dL (70-110)
[2018-09-09 23:49] LABS: Anion Gap 3 (5-15); BUN 14 mg/dL (7-18); BUN/Creat Ratio 15.5 RATIO (10-20); Calcium,Total 7.7 mg/dL (8.5-10.1); Chloride 103 mmol/L (98-107); Creatinine, Serum 0.91 mg/dL (0.70-1.30); EST Glomerular Filtration Rate 93 mL/min (>60); Est Glom Filt Rate - Afr Amer 112 mL/min (>60); Glucose 257 mg/dL (74-106); Potassium 4.6 mmol/L (3.5-5.1); Sodium Level 134 mmol/L (136-145)
[2018-09-10] VITALS (8 sets, daily range): BP systolic 104–155; BP diastolic 68–78; PULSE 77–96; RESP 15–18; TEMP 36.3–36.8; O2SAT 97–100
[2018-09-10] MEDS: Ondansetron 4 MG/2 ML Vial IV (00:20)
[2018-09-10] MEDS: Morphine 4 MG/ML Syringe IV ×3 (00:21→21:47)
[2018-09-10] MEDS: Insulin Lispro 100 UNIT/ML INSULN.PEN SQ ×6 (02:18→21:42)
[2018-09-10 02:26] LABS: Bedside Glucose 253 mg/dL (70-110)
[2018-09-10 06:51] LABS: Bedside Glucose 223 mg/dL (70-110)
[2018-09-10 06:59] LABS: Absolute Lymphocyte Count 2.08 X10^3/ul (0.83-4.51); Eosinophil# 0.21 X10^3/uL; Hematocrit 37.9 % (40-54); Hemoglobin 12.9 g/dl (13.0-16.5); Lymphocyte # 2.08 X10^3/ul (4.0); Lymphocyte % 20.1 % (19-41); Mean Corpuscular Hgb 29.5 pg (27.0-32.0); Mean Corpuscular Volume 86.7 fL (80-94); Mean Platelet Vol. 8.5 fl (6.2-12.0); Monocyte# 0.92 X10^3/uL; Monocyte% 8.9 % (0-10); Neutrophil # 7.02 X10^3/uL (2.7-7.7); Neutrophil % 67.8 % (47-70); Platelet Count 236 K/mm3 (150-450); RBC Distribution Width CV 13.1 % (11.6-14.6); RBC Distribution Width SD 41.9 fl (35.1-43.9); Red Blood Count 4.37 M/mm3 (4.6-6.2); White Blood Count 10.4 K/mm3 (4.4-11.0)
[2018-09-10 07:01] LABS: Anion Gap 7 (5-15); BUN 11 mg/dL (7-18); Calcium,Total 7.6 mg/dL (8.5-10.1); Chloride 106 mmol/L (98-107); Creatinine, Serum 0.74 mg/dL (0.70-1.30); EST Glomerular Filtration Rate 118 mL/min (>60); Est Glom Filt Rate - Afr Amer 143 mL/min (>60); Estimated Creatinine Clearance 114.12 ml/min; Glucose 221 mg/dL (74-106); POSITIVE COUNT NO; POSITIVE DIFFERENTIAL NO; POSITIVE MORPHOLOGY NO; Potassium 3.8 mmol/L (3.5-5.1); Sodium Level 137 mmol/L (136-145)
[2018-09-10] MEDS: Insulin Lispro 100 UNIT/ML INSULN.PEN 10 UNIT SQ ×3 (08:14→17:52)
[2018-09-10] MEDS: Gabapentin 600 MG Tablet PO ×3 (08:15→17:55)
--- NOTE | 2018-09-10 08:56 | PN_ITS ---
Patient Problems: Active and Suspected Problems DKA, type 2 (Acute) Sinus tachycardia by electrocardiogram (Acute) Bronchospasm (Acute) Nausea and vomiting (Acute) Subjective: Patient is a 53-year-old who presented with epigastric discomfort found to have elevated blood glucose levels greater than 500 with anion gap of 16 and small acetone and assessment of mild diabetic ketoacidosis made admitted for subsequent management patient managed with aggressive IV fluid resuscitation correction of electrolyte and administration of insulin 09/10/2018: Patient also did complain of some epigastric discomfort started on Protonix. Objective: GENERAL: Appears ill looking HEENT: Atraumatic; moist oral mucosa EYES; Anicteric, Normal Conjunctiva NECK; supple, normal thyroid, no distended JVD. RESPIRATORY: Diminished to auscultation bilaterally, CARDIOVASCULAR: Regular S1 S2, tachycardic GI: soft, non-tender, normoactive bowel sounds, : No Renal angle tenderness; EXTREMITIES: No edema, no clubbing, no cyanosis. MUSCULOSKELETAL: No Joint Tenderness; NEURO: Awake; no lateralizing signs. SKIN: No Rash PSYCH; Normal affect Vitals/I&O's: Vital Signs Temp Pulse Resp BP Pulse Ox 98.2 F 89 15 160/86 H 97 09/09/18 20:00 09/10/18 05:54 09/09/18 20:00 09/09/18 20:00 09/09/18 20:00 Oxygen Delivery Method Room Air Weight: 112.491 kg Body Mass Index (BMI) 36.6 Intake and Output for Last 24 Hours 09/08/18 09/09/18 09/10/18 23:59 23:59 23:59 Intake Total 2180 / 2180 3453 / 3453 Output Total 250 / 250 Balance 1930 / 1930 3453 / 3453 Laboratory Results 09/09/18 09:30: Acetone Level MODERATE H 09/09/18 10:57: POC Glucose 454 H* 09/09/18 11:44: POC Glucose 340 H 09/09/18 11:55: Sodium 133 L, Potassium 4.4, Chloride 99, Carbon Dioxide 21.0, Anion Gap 13, BUN 15, Creatinine 1.10, Estim Creat Clear Calc 76.77, Est GFR (MDRD) Af Amer 90, Est GFR (MDRD) Non-Af 74, BUN/Creatinine Ratio 13.6, Glucose 383 H, Calcium 8.6, Lipase 94 09/09/18 14:06: POC Glucose 385 H 09/09/18 15:20: Sodium 132 L, Potassium 3.9, Chloride 101, Carbon Dioxide 22.0, Anion Gap 9, BUN 14, Creatinine 0.97, Estim Creat Clear Calc 87.06, Est GFR (MDRD) Af Amer 104, Est GFR (MDRD) Non-Af 86, BUN/Creatinine Ratio 14.5, Glucose 310 H, Calcium 8.1 L 09/09/18 16:13: POC Glucose 298 H 09/09/18 19:35: Sodium 134 L, Potassium 3.3 L, Chloride 102, Carbon Dioxide 24.0, Anion Gap 8, BUN 14, Creatinine 0.99, Estim Creat Clear Calc 85.30, Est GFR (MDRD) Af Amer 101, Est GFR (MDRD) Non-Af 83, BUN/Creatinine Ratio 14.1, Glucose 246 H, Calcium 7.8 L 09/09/18 22:06: POC Glucose 257 H 09/09/18 23:10: Sodium 134 L, Potassium 4.6, Chloride 103, Carbon Dioxide 28.0, Anion Gap 3 L, BUN 14, Creatinine 0.91, Estim Creat Clear Calc 92.80, Est GFR (MDRD) Af Amer 112, Est GFR (MDRD) Non-Af 93, BUN/Creatinine Ratio 15.5, Glucose 257 H, Calcium 7.7 L 09/10/18 02:16: POC Glucose 253 H 09/10/18 06:13: Sodium 137, Potassium 3.8, Chloride 106, Carbon Dioxide 24.0, Anion Gap 7, BUN 11, Creatinine 0.74, Estim Creat Clear Calc 114.12, Est GFR (MDRD) Af Amer 143, Est GFR (MDRD) Non-Af 118, BUN/Creatinine Ratio 15.0, Glucose 221 H, Calcium 7.6 L 09/10/18 06:13: WBC 10.4, RBC 4.37 L, Hgb 12.9 L, Hct 37.9 L, MCV 86.7, MCH 29.5, MCHC 34.0, RDW 13.1, RDW Differential 41.9, Plt Count 236, MPV 8.5, Immature Gran % (Auto) 0.200, Neut % (Auto) 67.8, Lymph % (Auto) 20.1, [place] % (Auto) 8.9, Eos % (Auto) 2.0, Baso % (Auto) 1.0, Absolute Neuts (auto) 7.0, Absolute Lymphs (auto) 2.08, Total Counted Not Reportable 09/10/18 06:35: POC Glucose 223 H Current Medications Acetaminophen (Tylenol) 650 mg PO Q6H PRN PRN PRN Reason: Mild Pain (1-3)/Temp > 100.7 F Al Hydroxide/Mg Hydroxide (Mylanta Ii) 30 ml PO Q6H PRN PRN PRN Reason: Gastric Burning Albuterol Sulfate (Ventolin Aerosols) 2.5 mg INHALATION Q2H PRN PRN PRN Reason: Shortness of Breath/Wheezing Atorvastatin Calcium (Lipitor) 20 mg PO QHS [facility] Last Admin: 09/09/18 22:02 Dose: 20 mg Dextrose (D50w Syringe) 0 gm IV X1 PRN; Protocol PRN Reason: Hypoglycemia Enoxaparin Sodium (Lovenox) 40 mg SC DAILY@1000 KIM Gabapentin (Neurontin) 600 mg PO TIDCM [facility] Last Admin: 09/10/18 08:15 Dose: 600 mg Glucagon () 1 mg IM .X1 PRN PRN Reason: Hypoglycemia Guaifenesin (Robitussin) 20 ml PO Q4H PRN PRN PRN Reason: COUGH Pantoprazole Sodium 40 mg/ (Sodium Chloride) 110 mls @ 330 mls/hr IV Q12 [facility] Last Admin: 09/09/18 22:01 Dose: 330 mls/hr Sodium Chloride () 250 mls @ 15 mls/hr IV .[id number] PRN PRN Reason: SALINE FLUSH Insulin Glargine (Lantus (Bkc)) 30 units SC DINNER [facility] Last Admin: 09/09/18 17:00 Dose: 30 u Insulin Glargine (Lantus (Bkc)) 30 units SC BREAKFAST [facility] Last Admin: 09/10/18 08:14 Dose: 30 units Insulin Human Lispro (Humalog Kwikpen (Bkc)) 10 unit SQ BREAKFAST [facility] Last Admin: 09/10/18 08:14 Dose: 10 units Insulin Human Lispro (Humalog Kwikpen (Bkc)) 10 unit SQ DINNER [facility] Last Admin: 09/09/18 16:15 Dose: 10 u Insulin Human Lispro (Humalog Kwikpen (Bkc)) 10 unit SQ LUNCH [facility] Last Admin: 09/09/18 12:15 Dose: 10 unit Insulin Human Lispro (Humalog Kwikpen (Bkc)) 0 unit SQ Q4 [facility]; Protocol Last Admin: 09/10/18 06:39 Dose: 4 u Losartan Potassium (Cozaar) 25 mg PO DAILY [facility] Melatonin (Melatonin) 3 mg PO QHS PRN PRN PRN Reason: INSOMNIA Morphine Sulfate () 4 mg IV Q3H PRN PRN PRN Reason: Severe pain (7-02/23) Last Admin: 09/10/18 05:18 Dose: 4 mg Nutritional Formula (Lactose Free) (Glucerna Shake) 120 ml PO TIDCM [facility] Last Admin: 09/10/18 08:15 Dose: Not Given Ondansetron HCl (Zofran) 4 mg IV Q8H PRN PRN PRN Reason: NAUSEA/VOMITING Last Admin: 09/10/18 00:20 Dose: 4 mg Senna/Docusate Sodium (Senokot-S, Sofia-Colace) 2 tablet PO BID PRN PRN PRN Reason: Constipation Sodium Chloride () 5 - 15 ml IV UD PRN PRN Reason: SALINE FLUSH Tramadol HCl (Ultram) 50 mg PO DAILY [facility] Medical Necessity - Tobacco Use Smoking Status: Never smoker Assessment/Plan All Active Problems DKA, type 2 (Acute) Sinus tachycardia by electrocardiogram (Acute) Bronchospasm (Acute) Acute exacerbation of chronic low back pain (Resolved) JENNIFER (acute kidney injury) (Resolved) Nausea and vomiting (Acute) SIRS (systemic inflammatory response syndrome) (Resolved) Patient is a 53-year-old who presented with epigastric discomfort found to have elevated blood glucose levels greater than 500 with anion gap of 16 and small acetone and assessment of mild diabetic ketoacidosis made admitted for subsequent management 1. Diabetic ketoacidosis patient has been admitted for inpatient management consisting of aggressive IV fluid resuscitation correction of electrolyte abnormalities and a demonstration of insulin. Ordered every 4 Accu-Cheks with sliding scale coverage in addition to patient being placed on long-acting insulin. Patient did respond to treatment 2. Diabetes mellitus type 2 with complications including DKA management as discussed above patient's oral anti-diabetic agent held patient was started on long-acting insulin, scheduled short acting insulin with sliding scale insulin. 3. Epigastric discomfort do suspect gastritis patient placed on PPI 4. Sinus tachycardia secondary to dehydration from #1 5. Hypertension-blood pressure controlled, home medications continued with dose adjustment as needed 5. Chronic back pain 6. Obesity with BMI of 36 weight loss advised 7. DVT prophylaxis Lovenox Code Visit Inpatient E&M: 48759 Subs Hosp L3
[2018-09-10] MEDS: Losartan Potassium 25 MG Tablet PO (09:30)
[2018-09-10] MEDS: traMADol 50 MG Tablet PO (10:14)
[2018-09-10] MEDS: Enoxaparin 40 MG/0.4 ML Syringe SC (10:15)
[2018-09-10] MEDS: Glucerna Shake 120 ML LIQUID PO ×2 (10:15→17:52)
[2018-09-10 10:23] LABS: Hemoglobin A1c 8.7 % (4.2-6.3)
[2018-09-10 10:26] LABS: Bedside Glucose 216 mg/dL (70-110)
[2018-09-10 13:56] LABS: Bedside Glucose 215 mg/dL (70-110)
[2018-09-10] MEDS: Acetaminophen 325 MG Tablet 650 MG PO (16:15)
[2018-09-10 17:10] LABS: Bedside Glucose 158 mg/dL (70-110)
[2018-09-10] MEDS: Atorvastatin Calcium 20 MG Tablet PO (21:13)
[2018-09-10 22:01] LABS: Bedside Glucose 164 mg/dL (70-110)
[2018-09-11 02:00] VITALS: PULSE 66
[2018-09-11] MEDS: Acetaminophen 325 MG Tablet 650 MG PO (02:23)
[2018-09-11 02:26] LABS: Bedside Glucose 213 mg/dL (70-110)
[2018-09-11 03:00] VITALS: RESP 15
[2018-09-11 04:00] VITALS: BP 143/76; PULSE 69; RESP 15; TEMP 36.2; O2SAT 100
[2018-09-11 05:39] VITALS: PULSE 67
[2018-09-11 07:06] VITALS: PULSE 78
[2018-09-11 07:11] LABS: Bedside Glucose 206 mg/dL (70-110)
[2018-09-11 08:07] LABS: Anion Gap 7 (5-15); BUN 11 mg/dL (7-18); BUN/Creat Ratio 14.7 RATIO (10-20); Calcium,Total 8.1 mg/dL (8.5-10.1); Chloride 104 mmol/L (98-107); Creatinine, Serum 0.75 mg/dL (0.70-1.30); EST Glomerular Filtration Rate 115 mL/min (>60); Est Glom Filt Rate - Afr Amer 140 mL/min (>60); Glucose 184 mg/dL (74-106); Potassium 4.2 mmol/L (3.5-5.1); Sodium Level 136 mmol/L (136-145)
[2018-09-11] MEDS: Gabapentin 600 MG Tablet PO (08:50)
[2018-09-11] MEDS: Glucerna Shake 120 ML LIQUID PO (08:50)
[2018-09-11] MEDS: Insulin Lispro 100 UNIT/ML INSULN.PEN SQ (08:51)
[2018-09-11] MEDS: Insulin Lispro 100 UNIT/ML INSULN.PEN 10 UNIT SQ (08:51)
[2018-09-11] MEDS: Losartan Potassium 25 MG Tablet PO (08:56)
[2018-09-11 09:00] VITALS: BP 138/55; PULSE 80; RESP 16; TEMP 36.3; O2SAT 98
[2018-09-11] MEDS: traMADol 50 MG Tablet 100 MG PO (09:22)
--- NOTE | 2018-09-11 09:27 | DCINST_ITS ---
- Discharge Diagnoses Current Active Problems: Current Active and Chronic Problems DKA, type 2 (Acute) Sinus tachycardia by electrocardiogram (Acute) Bronchospasm (Acute) Hypertension associated with diabetes (Chronic) Nausea and vomiting (Acute) You will use the following diet at home:: Calorie/Carbohydrate Controlled (specify 1200, 1400, etc) - 1800 Discharge Activity: Return to Normal Activity Allergies/Adverse Reactions: Allergies amitriptyline Allergy (Verified 09/09/18 07:16) Other Penicillins Allergy (Verified 09/09/18 07:16) Unknown pregabalin [From Lyrica] Allergy (Verified 09/09/18 07:16) Shortness of breath temazepam Adverse Reaction (Verified 09/09/18 07:16) Other MYOCLONIC JERKING Medications to take at Discharge Gabapentin [Neurontin] 800 mg PO TIDCM 01/07/14 Metformin HCl [Glucophage] 1,000 mg PO BIDCM 01/07/14 Glimepiride [Amaryl] 2 mg PO DAILY 10/08/14 Aspirin/Acetaminophen/Caffeine [Excedrin Extra Strength Caplet] 1 capsule PO DAILY PRN PRN 05/09/16 traMADol [Ultram] 50 mg PO DAILY 10/30/16 Atorvastatin Calcium 20 mg PO QHS 09/09/18 Losartan Potassium 25 mg PO DAILY 09/09/18 Pantoprazole Sodium [Protonix] 40 mg PO DAILY #60 tablet 09/11/18 The following prescriptions were given: Pantoprazole Sodium [Protonix] 40 mg PO DAILY #60 tablet Primary Care Physician: Jaelyn Lee MD [Primary Care Provider] - Please follow up with your Primary Care Physician in: in 5-7 days Test Results: Test results from this visit will be discussed in further detail at your follow- up appointment, if applicable. Proposed Discharge Date: 09/11/18
--- NOTE | 2018-09-11 09:29 | PCM.DC.SUM ---
Discharge Date and Diagnosis - Problem List Patient Problems: Active and Suspected Problems DKA, type 2 (Acute) Sinus tachycardia by electrocardiogram (Acute) Bronchospasm (Acute) Nausea and vomiting (Acute) Date of Admission: 09/09/18 Date of Discharge: 09/11/18 - Primary Discharge Diagnosis Active and Suspected Problems DKA, type 2 (Acute) Sinus tachycardia by electrocardiogram (Acute) Bronchospasm (Acute) Nausea and vomiting (Acute) - Secondary Discharge Diagnosis Chronic Problems History of hypercholesterolemia (Chronic) Hypertension associated with diabetes (Chronic) Tremor (Chronic) History of Ischemic Stroke (Chronic) HTN (hypertension) (Chronic) History of edema (Chronic) Diabetic polyneuropathy (Chronic) Chronic low back pain (Chronic) Fall (Chronic) Type II diabetes mellitus, uncontrolled (Chronic) Hospital Course and Treatment Operations: None Summary of Care Provided: Patient is a 53-year-old who presented with epigastric discomfort found to have elevated blood glucose levels greater than 500 with anion gap of 16 and small acetone and assessment of mild diabetic ketoacidosis made admitted for subsequent management 1. Diabetic ketoacidosis patient has been admitted for inpatient management consisting of aggressive IV fluid resuscitation correction of electrolyte abnormalities and a demonstration of insulin. Ordered every 4 Accu-Cheks with sliding scale coverage in addition to patient being placed on long-acting insulin. Patient did respond to treatment 2. Diabetes mellitus type 2 with complications including DKA management as discussed above patient's oral anti-diabetic agent held patient was started on long-acting insulin, scheduled short acting insulin with sliding scale insulin. 3. Epigastric discomfort do suspect gastritis patient placed on PPI. Prescription was written on discharge 4. Sinus tachycardia secondary to dehydration from #1 5. Hypertension-blood pressure controlled, home medications continued with dose adjustment as needed 5. Chronic back pain 6. Obesity with BMI of 36 weight loss advised 7. DVT prophylaxis Lovenox Patient Problems: Active and Suspected Problems DKA, type 2 (Acute) Sinus tachycardia by electrocardiogram (Acute) Bronchospasm (Acute) Nausea and vomiting (Acute) Objective: GENERAL: Appears ill looking HEENT: Atraumatic; moist oral mucosa EYES; Anicteric, Normal Conjunctiva NECK; supple, normal thyroid, no distended JVD. MUSCULOSKELETAL: No Joint Tenderness; NEURO: Awake; no lateralizing signs. SKIN: No Rash PSYCH; Normal affect - Physical Exam Vital Signs Temp Pulse Resp BP Pulse Ox 97.1 F L 67 15 143/76 H 100 09/11/18 04:00 09/11/18 05:39 09/11/18 04:00 09/11/18 04:00 09/11/18 04:00 Oxygen Delivery Method Room Air Weight: 119.3 kg Body Mass Index (BMI) 36.6 Intake and Output for Last 24 Hours 09/09/18 09/10/18 09/11/18 23:59 23:59 23:59 Intake Total 2180 / 2180 5003 / 5003 550 / 550 Output Total 250 / 250 Balance 1930 / 1930 5003 / 5003 550 / 550 Laboratory Tests Past 24 Hrs 09/10/18 09/11/18 06:00 05:24 Sodium 136 Potassium 4.2 Chloride 104 Carbon Dioxide 25.0 Anion Gap 7 BUN 11 Creatinine 0.75 Estim Creat Clear Calc 112.60 Est GFR (MDRD) Af Amer 140 Est GFR (MDRD) Non-Af 115 BUN/Creatinine Ratio 14.7 Glucose 184 H Hemoglobin A1c 8.7 H Calcium 8.1 L POC Glucose 09/11/18 09/11/18 09/10/18 07:06 02:20 21:39 POC Glucose 206 H 213 H 164 H 09/10/18 09/10/18 09/10/18 17:05 13:48 10:17 POC Glucose 158 H 215 H 216 H Discharge Diet: 1800 Calorie Control Diet Discharge Activity: Return to Normal Activity Home Medications: Medications to take at Discharge Gabapentin [Neurontin] 800 mg PO TIDCM 01/07/14 Metformin HCl [Glucophage] 1,000 mg PO BIDCM 01/07/14 Glimepiride [Amaryl] 2 mg PO DAILY 10/08/14 Aspirin/Acetaminophen/Caffeine [Excedrin Extra Strength Caplet] 1 capsule PO DAILY PRN PRN 05/09/16 traMADol [Ultram] 50 mg PO DAILY 10/30/16 Atorvastatin Calcium 20 mg PO QHS 09/09/18 Losartan Potassium 25 mg PO DAILY 09/09/18 Pantoprazole Sodium [Protonix] 40 mg PO DAILY #60 tablet 09/11/18 Following Prescrptions Were Given to Patient: Pantoprazole Sodium [Protonix] 40 mg PO DAILY #60 tablet Primary Care Physician: Jaelyn Lee MD [Primary Care Provider] - Please follow up with your Primary Care Physician in: in 5-7 days Disposition: Home Minutes spent on discharge:: 45 Patient Condition:: Stable Medical Necessity - Tobacco Use Smoking Status: Never smoker Meaningful Use Info Meaningful Use Diagnoses (Choose all that apply): None applicable Code Visit Inpatient E&M: 91672 Disch Hosp
--- NOTE | 2018-09-13 15:05 | CASEMGMT ---
MANI WATTERS DC PHONE CALL DC DATE: 09/11/18 DC Disposition: Home LACE/STRATA: 03/19 Intro role of CM to patient via phone. Pt states he does not have questions re: prescriptions, f/u or instructions. Pt has f/u appt with Mamta Randall on October 03, 2018. MANI WATTERS let pt know if he has recurring or worsening symptoms, to call office nurse and have earlier appt made. Pt otherwise states he is doing well. Sole YINN RN ACM
== END 2018-09-11 11:30 | disposition home or self-care (01) | DRG 420 ==
LOC: ED 10:01 → MS3 10:42
PROVIDERS: Admitting Provider Internal Medicine; Emergency Provider Emergency Medicine; Family Provider Internal Medicine; PCP Internal Medicine; Referring Provider Internal Medicine; Visit Provider Internal Medicine
DX: E11.10 Type 2 diabetes mellitus with ketoacidosis without coma (principal); E11.42 Type 2 diabetes mellitus with diabetic polyneuropathy; I10 Essential (primary) hypertension; E86.0 Dehydration; E78.00 Pure hypercholesterolemia, unspecified; E11.65 Type 2 diabetes mellitus with hyperglycemia; G89.29 Other chronic pain; E66.9 Obesity, unspecified; Z68.36 Body mass index [BMI] 36.0-36.9, adult; M54.5 Low back pain; R00.0 Tachycardia, unspecified; Z86.73 Personal history of transient ischemic attack (TIA), and cerebral infarction without residual deficits; Z79.84 Long term (current) use of oral hypoglycemic drugs; J98.01 Acute bronchospasm
CPT/HCPCS: 36415; 71046; 80048; 80076; 82009; 82962; 83036; 83690; 84484; 85025; 92610; 93005; 94640; 96361; 96365; 96366; 96372; 96375; 96376; 97802; 99218; 99285; J7030; A4216; G0378; J2405; J3490

== ENCOUNTER 2018-12-08 00:51 | Emergency (ER) | payer MEDICAID, SELFPAY ==
[2018-09-09 11:30] VITALS: BMI 36.6
[2018-12-08 00:52] VITALS: BP 178/95; PULSE 117; RESP 20; TEMP 36.8; O2SAT 96; BMI 40.1
--- NOTE | 2018-12-08 01:15 | ED.VIS.GEN ---
History of Present Illness Chief Complaint: Other, Pain/Inj Informant: Patient Narrative: Patient stated he has chronic neuropathy in his bilateral feet heels and ankles. He takes gabapentin and tramadol for this. He is followed by his family doctor for this. He comes in just for worsening pain over the last couple weeks. No new injury. States he also has significant arthritis. Current severity is mild to moderate. Stated just because he can fall asleep tonight he wanted to come in for pain control. - Past Medical History (1) Bronchospasm Status: Acute (2) DKA, type 2 Status: Acute (3) Nausea and vomiting Status: Acute (4) Sinus tachycardia by electrocardiogram Status: Acute (5) Chronic low back pain Status: Chronic (6) Diabetic polyneuropathy Status: Chronic (7) Fall Status: Chronic (8) HTN (hypertension) Status: Chronic (9) History of Ischemic Stroke Status: Chronic (10) History of edema Status: Chronic (11) History of hypercholesterolemia Status: Chronic (12) Hypertension associated with diabetes Status: Chronic (13) Tremor Status: Chronic (14) Type II diabetes mellitus, uncontrolled Status: Chronic (15) JENNIFER (acute kidney injury) Status: Resolved (16) Acute exacerbation of chronic low back pain Status: Resolved (17) SIRS (systemic inflammatory response syndrome) Status: Resolved Past Medical History - Allergies and Home Meds Allergies/Adverse Reactions: Allergies amitriptyline Allergy (Verified 09/09/18 07:16) Other Penicillins Allergy (Verified 09/09/18 07:16) Unknown pregabalin [From Lyrica] Allergy (Verified 09/09/18 07:16) Shortness of breath temazepam Adverse Reaction (Verified 09/09/18 07:16) Other MYOCLONIC JERKING Primary Care Physician: Jaelyn Lee MD [Primary Care Provider] - Prior records reviewed: Yes Past Medical History: - - See problem list Surgical History: no surgical history Smoking Status: Never smoker Alcohol: None Drugs: None - Family History Maternal Family History: Reports: Diabetes, Heart Disease, Hypertension Paternal Family History: Reports: Heart Disease Review of Systems General: Denies: Chills, Fever, Sweats Eyes: Denies: Visual changes - bilaterally, Diplopia ENT: Denies: Rhinorrhea, Sore throat Cardiovascular: Denies: Chest pain, Palpitations Respiratory: Denies: Dyspnea, Cough, Dyspnea on exertion Gastrointestinal: Denies: Abdominal pain, Nausea, Vomiting, Diarrhea, Melena, Hematochezia Genitourinary: Denies: Dysuria, Hematuria, Frequency Musculoskeletal: Reports: Extremity Pain - see HPI. Denies: Back pain Skin: Denies: Rash, Wounds Neurological: Denies: Headache, Weakness, Numbness Physical Exam Vital Signs/Narrative: Vital Signs Temp Pulse Resp BP Pulse Ox 12/08/18 00:52 98.2 F 117 H 20 H 178/95 H 96 General: Well nourished, Well developed, No Acute Distress Head: Normocephalic, Atraumatic Eyes: Perrl, EOMI ENT: Moist mucous membranes, No rhinorrhea Neck: Supple, Nontender Cardiovascular: Regular rate, Regular rhythm, No murmurs Respiratory: No distress, CTA bilaterally, Chest nontender Abdomen: Soft, Nontender, Nondistended, Normal bowel sounds Back: Nontender, Normal Inspection Extremities: Nontender, No edema, - - She has bilateral arthritic changes to the feet. Normal pulses and temperature. Positive varicose veins. Heels appear without swelling. Slight soreness in the feet diffusely Skin: No rash. Negative for: Normal color Neurological: Alert, Oriented x3, Cranial nerves II-XII grossly intact, Normal Strength, Normal Sensation Psychological: Normal affect, Normal Mood Diagnostic/Tx/Re-eval - Medical Decision Making Patient is here for pain control for chronic problem. Given injection of Toradol. He has compression stockings and does not want Dario wraps. I do not feel he needs imaging. There is been no injury. There is no vascular emergency. He will follow-up as an outpatient ED Disposition - Plan for ED Patient: Disposition: Psychiatric Hospital or Unit Diagnosis: Arthritis of foot, Peripheral neuropathy Instructions: ED Chronic Pain Referrals: Jaelyn Lee MD [Primary Care Provider] -
[2018-12-08] MEDS: Ketorolac 15 MG/ML Vial IM (01:21)
== END 2018-12-08 01:35 | disposition home or self-care (01) ==
LOC: ED 01:22
PROVIDERS: Emergency Provider Emergency Medicine; Family Provider Internal Medicine; PCP Internal Medicine
DX: M19.072 Primary osteoarthritis, left ankle and foot (principal); M19.071 Primary osteoarthritis, right ankle and foot; E11.42 Type 2 diabetes mellitus with diabetic polyneuropathy; M54.5 Low back pain; G89.29 Other chronic pain; I10 Essential (primary) hypertension; E78.00 Pure hypercholesterolemia, unspecified; Z86.73 Personal history of transient ischemic attack (TIA), and cerebral infarction without residual deficits; Z87.448 Personal history of other diseases of urinary system; Z79.84 Long term (current) use of oral hypoglycemic drugs; Z79.899 Other long term (current) drug therapy

== ENCOUNTER 2018-12-08 06:03 | Emergency (ER) | payer MEDICAID, SELFPAY ==
[2018-12-08 00:52] VITALS: BMI 40.1
[2018-12-08 06:05] VITALS: BP 174/104; PULSE 105; RESP 16; TEMP 36.9; O2SAT 96; BMI 40.4
[2018-12-08 06:16] LABS: Bedside Glucose 267 mg/dL (70-110)
[2018-12-08] MEDS: traMADol 50 MG Tablet 100 MG PO (06:52)
--- NOTE | 2019-01-03 02:25 | ED.VIS.GEN ---
History of Present Illness Chief Complaint: Lower Extremity Injury Informant: Patient Narrative: has chronic neuropathy in his legs and is been out of his tramadol. Requesting some tramadol for his discomfort. Does not have a new injury or problem. Current severity is mild. - Past Medical History (1) Arthritis of foot Status: Inactive (2) Bronchospasm Status: Acute (3) DKA, type 2 Status: Acute (4) Nausea and vomiting Status: Acute (5) Peripheral neuropathy Status: Inactive (6) Sinus tachycardia by electrocardiogram Status: Acute (7) Chronic low back pain Status: Chronic (8) Diabetic polyneuropathy Status: Chronic (9) Fall Status: Chronic (10) HTN (hypertension) Status: Chronic (11) History of Ischemic Stroke Status: Chronic (12) History of edema Status: Chronic (13) History of hypercholesterolemia Status: Chronic (14) Hypertension associated with diabetes Status: Chronic (15) Tremor Status: Chronic (16) Type II diabetes mellitus, uncontrolled Status: Chronic (17) JENNIFER (acute kidney injury) Status: Resolved (18) Acute exacerbation of chronic low back pain Status: Resolved (19) SIRS (systemic inflammatory response syndrome) Status: Resolved Past Medical History - Allergies and Home Meds Allergies/Adverse Reactions: Allergies amitriptyline Allergy (Verified 12/08/18 06:04) Other Penicillins Allergy (Verified 12/08/18 06:04) Unknown pregabalin [From Lyrica] Allergy (Verified 12/08/18 06:04) Shortness of breath temazepam Adverse Reaction (Verified 12/08/18 06:04) Other MYOCLONIC JERKING Primary Care Physician: Jaelyn Lee MD [Primary Care Provider] - Prior records reviewed: Yes Past Medical History: - - See problem list Surgical History: no surgical history Smoking Status: Never smoker Alcohol: None Drugs: None - Family History Maternal Family History: Reports: Diabetes, Heart Disease, Hypertension Paternal Family History: Reports: Heart Disease Review of Systems General: Denies: Chills, Fever, Sweats Eyes: Denies: Visual changes - bilaterally, Diplopia ENT: Denies: Rhinorrhea, Sore throat Cardiovascular: Denies: Chest pain, Palpitations Respiratory: Denies: Dyspnea, Cough, Dyspnea on exertion Gastrointestinal: Denies: Abdominal pain, Nausea, Vomiting, Diarrhea, Melena, Hematochezia Genitourinary: Denies: Dysuria, Hematuria, Frequency Musculoskeletal: Reports: Extremity Pain. Denies: Back pain Skin: Denies: Rash, Wounds Neurological: Denies: Headache, Weakness, Numbness Physical Exam General: Well nourished, Well developed, No Acute Distress Head: Normocephalic, Atraumatic Eyes: Perrl, EOMI ENT: Moist mucous membranes, No rhinorrhea Neck: Supple, Nontender Cardiovascular: Regular rate, Regular rhythm, No murmurs Respiratory: No distress, CTA bilaterally, Chest nontender Abdomen: Soft, Nontender, Nondistended, Normal bowel sounds Back: Nontender, Normal Inspection Extremities: Nontender, No edema Skin: Normal color, No rash Neurological: Alert, Oriented x3, Cranial nerves II-XII grossly intact, Normal Strength, Normal Sensation Psychological: Normal affect, Normal Mood Diagnostic/Tx/Re-eval - Medical Decision Making This time the patient has chronic neuropathy. Treated as such. I feel he can be discharged to follow-up as an outpatient. I do not feel he has an emergent cause of his symptoms ED Disposition - Plan for ED Patient: Disposition: Home or Assisted Living Diagnosis: Peripheral neuropathy Instructions: What Is Peripheral Neuropathy? Referrals: Jaelyn Lee MD [Primary Care Provider] -
== END 2018-12-08 06:53 | disposition home or self-care (01) ==
PROVIDERS: Emergency Provider Emergency Medicine; Family Provider Internal Medicine; PCP Internal Medicine
DX: E11.40 Type 2 diabetes mellitus with diabetic neuropathy, unspecified (principal); M54.5 Low back pain; G89.29 Other chronic pain; E11.42 Type 2 diabetes mellitus with diabetic polyneuropathy; I10 Essential (primary) hypertension; E78.00 Pure hypercholesterolemia, unspecified; Z86.73 Personal history of transient ischemic attack (TIA), and cerebral infarction without residual deficits; Z79.82 Long term (current) use of aspirin; Z79.899 Other long term (current) drug therapy; M19.072 Primary osteoarthritis, left ankle and foot; M19.071 Primary osteoarthritis, right ankle and foot; Z87.448 Personal history of other diseases of urinary system; Z79.84 Long term (current) use of oral hypoglycemic drugs
CPT/HCPCS: 82962; 96372; 99282; 99283

== ENCOUNTER 2018-12-10 01:12 | Emergency (ER) | payer MEDICAID, SELFPAY ==
[2018-12-10 01:12] VITALS: BP 179/92; PULSE 107; RESP 16; TEMP 36.8; O2SAT 97; BMI 38.2
--- NOTE | 2018-12-10 01:27 | ED.VIS.GEN ---
History of Present Illness Chief Complaint: General Illness Informant: Patient Narrative: Stated he is here for his chronic neuropathy in his legs. He has been seen by myself for the third time this visit in the last few days. He is out of his tramadol and cannot get it for 2 weeks. He has a refill but they will not fill it for 2 weeks. Stated he also has a mild frontal headache. Using Tylenol and ibuprofen with minimal relief. Requesting tramadol. - Past Medical History (1) Bronchospasm Status: Acute (2) DKA, type 2 Status: Acute (3) Nausea and vomiting Status: Acute (4) Sinus tachycardia by electrocardiogram Status: Acute (5) Chronic low back pain Status: Chronic (6) Diabetic polyneuropathy Status: Chronic (7) Fall Status: Chronic (8) HTN (hypertension) Status: Chronic (9) History of Ischemic Stroke Status: Chronic (10) History of edema Status: Chronic (11) History of hypercholesterolemia Status: Chronic (12) Hypertension associated with diabetes Status: Chronic (13) Tremor Status: Chronic (14) Type II diabetes mellitus, uncontrolled Status: Chronic (15) JENNIFER (acute kidney injury) Status: Resolved (16) Acute exacerbation of chronic low back pain Status: Resolved (17) SIRS (systemic inflammatory response syndrome) Status: Resolved Past Medical History - Allergies and Home Meds Allergies/Adverse Reactions: Allergies amitriptyline Allergy (Verified 12/10/18 01:17) Other Penicillins Allergy (Verified 12/10/18 01:17) Unknown pregabalin [From Lyrica] Allergy (Verified 12/10/18 01:17) Shortness of breath temazepam Adverse Reaction (Verified 12/10/18 01:17) Other MYOCLONIC JERKING Primary Care Physician: Jaelyn Lee MD [Primary Care Provider] - Prior records reviewed: Yes Past Medical History: - - See problem list Surgical History: no surgical history Lives: Alone Smoking Status: Never smoker Alcohol: None Drugs: None - Family History Maternal Family History: Reports: Diabetes, Heart Disease, Hypertension Paternal Family History: Reports: Heart Disease Review of Systems General: Denies: Chills, Fever, Sweats Eyes: Denies: Visual changes - bilaterally, Diplopia ENT: Denies: Rhinorrhea, Sore throat Cardiovascular: Denies: Chest pain, Palpitations Respiratory: Denies: Dyspnea, Cough, Dyspnea on exertion Gastrointestinal: Denies: Abdominal pain, Nausea, Vomiting, Diarrhea, Melena, Hematochezia Genitourinary: Denies: Dysuria, Hematuria, Frequency Musculoskeletal: Reports: Extremity Pain. Denies: Back pain Skin: Denies: Rash, Wounds Neurological: Reports: Headache. Denies: Weakness, Numbness Physical Exam Vital Signs/Narrative: Vital Signs Temp Pulse Resp BP Pulse Ox 12/10/18 01:12 98.3 F 107 H 16 179/92 H 97 General: Well nourished, Well developed, No Acute Distress Head: Normocephalic, Atraumatic Eyes: Perrl, EOMI ENT: Moist mucous membranes, No rhinorrhea Neck: Supple, Nontender Cardiovascular: Regular rate, Regular rhythm, No murmurs Respiratory: No distress, CTA bilaterally, Chest nontender Abdomen: Soft, Nontender, Nondistended, Normal bowel sounds Back: Nontender, Normal Inspection Extremities: Nontender, Edema - Chronic lymphedema lower extremities mild in nature. Negative for: No edema Skin: Normal color, No rash Neurological: Alert, Oriented x3, Cranial nerves II-XII grossly intact, Normal Strength, Normal Sensation Psychological: Normal affect, Normal Mood Diagnostic/Tx/Re-eval - Medical Decision Making I discussed with the patient that he cannot keep come in here for tramadol for the next 14 days. Nonetheless I will give him a dose tonight. He understands he cannot come back for chest pain medicine. I do not think he has an acute cause of his headache. He will use Tylenol and ibuprofen as an outpatient ED Disposition - Plan for ED Patient: Disposition: Home or Assisted Living Diagnosis: Peripheral neuropathy, Tension headache Referrals: Jaelyn Lee MD [Primary Care Provider] -
[2018-12-10] MEDS: traMADol 50 MG Tablet 100 MG PO (01:28)
[2018-12-10 01:36] VITALS: BP 179/92; PULSE 107; RESP 15; O2SAT 97
== END 2018-12-10 01:36 | disposition home or self-care (01) ==
LOC: ED 01:35
PROVIDERS: Emergency Provider Emergency Medicine; Family Provider Clinical Nurse Specialist; PCP Clinical Nurse Specialist
DX: E11.42 Type 2 diabetes mellitus with diabetic polyneuropathy (principal); G44.209 Tension-type headache, unspecified, not intractable; I89.0 Lymphedema, not elsewhere classified; M54.5 Low back pain; G89.29 Other chronic pain; E78.00 Pure hypercholesterolemia, unspecified; I10 Essential (primary) hypertension; Z86.73 Personal history of transient ischemic attack (TIA), and cerebral infarction without residual deficits; Z87.448 Personal history of other diseases of urinary system; Z79.84 Long term (current) use of oral hypoglycemic drugs; Z79.899 Other long term (current) drug therapy
CPT/HCPCS: 99283

== ENCOUNTER 2019-09-28 08:36 | Emergency (ER) | payer MEDICAID, SELFPAY ==
[2019-09-28 08:38] VITALS: BP 160/90; PULSE 116; RESP 18; TEMP 36.2; O2SAT 97; BMI 38.4
--- NOTE | 2019-09-28 08:47 | ED.DCSUM_ITS ---
- ER Visit Summary Date of Service: 09/28/19 Chief Complaint: Headache History of Present Illness: The patient is a 54 M who presents with a headache. He has had this for 1 week. He describes a throbbing and burning sensation in the right temporal area that goes down to the mastoid area. Nothing makes it worse but tramadol at home makes it better. He denies fever, nausea or vomiting. He denies any visual changes. No falls or trauma. He does have a history of headaches but states that this is a little bit different. He tried rkqq-wlk-ylyddoc medications but it did not help. Physical Examination: Vital signs reviewed. HEENT exam unremarkable. He has no rashes. No temporal artery tenderness. No mastoid tenderness. Heart is tachycardic and regular rhythm without murmurs. Lungs are clear to auscultation. Abdomen is soft and nontender. Extremities reveal no edema. Skin exam normal. Neurologic exam normal. Test Results: None performed Emergency Department Course and Treatment: Patient is given Reglan Benadryl and Toradol. Upon reevaluation he is feeling much better. There is no evidence of any rash, mastoid tenderness or temporal artery tenderness. I do not feel he needs any testing. Patient will continue his home medications. Treatment Plan: [] Disposition: Discharge Impression: Headache This note was generated with [employer] dictation software. It may contain incorrect words, spelling, and punctuation that were not noted in review of the chart prior to signing ED Disposition - Plan for ED Patient: Disposition: Home or Assisted Living Instructions: ED CEPHALGIA Tension Headache Referrals: Mamta Randall NP-C [NON-STAFF] -
[2019-09-28] MEDS: DiphenhydrAMINE 50 MG/ML Syringe 25 MG IV (08:56)
[2019-09-28] MEDS: Ketorolac 30 MG/ML Syringe IV (08:57)
[2019-09-28] MEDS: 0.9% Normal Saline 1,000 ML 999 ML IV (08:57)
[2019-09-28] MEDS: Metoclopramide 10 MG/2 ML Vial IV (08:59)
[2019-09-28 09:20] VITALS: BP 179/108; PULSE 88; RESP 16; O2SAT 96
[2019-09-28 09:49] VITALS: BP 161/89; PULSE 83; O2SAT 97
== END 2019-09-28 10:10 | disposition home or self-care (01) ==
PROVIDERS: Emergency Provider Emergency Medicine; PCP Internal Medicine
DX: R51 Headache (principal); E11.9 Type 2 diabetes mellitus without complications; I10 Essential (primary) hypertension; Z79.84 Long term (current) use of oral hypoglycemic drugs; Z79.82 Long term (current) use of aspirin; Z79.899 Other long term (current) drug therapy
CPT/HCPCS: 96361; 96374; 96375; 99284; J7030; A4216

== ENCOUNTER 2019-12-02 13:14 | Observation (INO) | payer MEDICAID, SELFPAY ==
[2019-12-02] VITALS (10 sets, daily range): BP systolic 147–220; BP diastolic 75–116; PULSE 77–129; RESP 16–19; TEMP 35.7–36.9; O2SAT 96–98; BMI 38.8; BMI 37.7
--- NOTE | 2019-12-02 13:48 | EKG12_ITS ---
Test Reason : TACHYCARDIA Blood Pressure : / mmHG Vent. Rate : 128 BPM Atrial Rate : 128 BPM P-R Int : 132 ms QRS Dur : 082 ms QT Int : 318 ms P-R-T Axes : 046 -69 065 degrees QTc Int : 464 ms Sinus tachycardia Left anterior fascicular block Septal infarct , age undetermined Abnormal ECG Confirmed by CHARI ROY, DYLAN ([id number]), news copy editor NORM BRYANT ([id number]) on 12/05/2019 9:24:56 AM Referred By: RU Confirmed By:DYLAN MARCELINO MD
--- NOTE | 2019-12-02 13:48 | CT_ITS ---
STUDY: CT BRAIN WITHOUT CONTRAST REASON FOR EXAM: Male, 54 years old. FALL, DIZZINESS SINCE 2012, NO RELIEF WITH MEDS TODAY, HTN, HLD, CVA, TREMORS, SIRS, DB RADIATION DOSAGE (If Supplied By Facility): CTDIvol = ( 44.99 ) mGy, DLP = ( 829.85 ) mGycm TECHNIQUE: Transaxial CT imaging of the brain was performed without administration of intravenous contrast material. Coronal and sagittal reconstructions were also performed. Individualized dose optimization techniques were used for this CT. COMPARISON: CT head without contrast 05/19/2016. FINDINGS: Normal soft tissue structures. Normal calvarium. Normal size ventricles and extra-axial spaces for the patient''s age. Hypodensities in the left anterior periventricular white matter and in the left parietal lobe subcortical white matter are chronic white matter ischemic changes. No midline shift and no mass effects. Normal basal ganglia and thalami. Normal brainstem. Normal cerebellum. There is no intracranial hemorrhage. There are no findings of an acute ischemic infarction. Normal visualized paranasal sinuses. CT/Brain/Head without Contrast IMPRESSION: 1. No CT evidence of intracranial bleeding, acute ischemic infarct or acute intracranial abnormality. 2. Chronic white matter ischemic changes in the left anterior periventricular white matter and left parietal lobe subcortical white matter were present previously and unchanged. Electronically Signed: Kike Doherty MD at 14:32 EDT , Service support ,
--- NOTE | 2019-12-02 13:54 | ED.DCSUM_ITS ---
- ER Visit Summary Date of Service: 12/02/19 Chief Complaint: [Dizziness] History of Present Illness: The patient is a 54 M [presents the emergency department dizziness that started around 7:30 AM this morning. Patient states that he was still up in bed. Patient states that he felt too dizzy to go to the kitchen where his medications are and did not take any of his pain medications that he takes for chronic neck and back pain. Patient normally takes tramadol and gabapentin. Patient states that he took 3 Antivert tablets without any resolution of his dizziness. He states he is been dizzy multiple times in the past and has been dealing with this since 2012. He feels more a lightheaded feeling that a vertiginous feeling. He states that typically he will fall when he gets this way but has not fallen today. He denies any chest pain or shortness of breath. Does complain of back pain and headache. On EMS arrival patient was noted to be quite hypertensive with a systolic in the 230s and the diastolic in the 120s. Patient states that he supposed to be on lisinopril which she discontinued due to cough and has not taken any blood pressure medicine. Patient denies recent illness.] Physical Examination: [HEENT-PERRLA, EOMI. Cranial nerves II through XII grossly intact. TMs clear. Mucous membranes moist. No adenopathy. Cardiovascular-regular rate and rhythm without murmur or ectopy Lungs-clear to auscultation, chest wall stable without crepitus or subcu emph ysema Abdomen-normoactive bowel sounds, soft, nontender, no rebound or rigidity, no peritoneal signs. Neuro lhce-alqkyl-cwfu and heel choi testing within normal limits, negative Romberg, negative for drift, fundi benign. Hallpike maneuver performed and was negative for nystagmus. Extremities-intact ?4, normal range of motion, normal pulses, atraumatic] Test Results: [EKG obtained on arrival showed a sinus tachycardia with a ventricular rate of 120 bpm with left anterior fascicular block. CBC with differential obtained showing a 9.8, hemoglobin 15.6, hematocrit 46, platelet 268. Chemistries unremarkable. Glucose was 342. BUN 15 and creatinine 0.94. Troponin was less than 0.015. CT scan of the brain without contrast showed chronic ischemic changes otherwise nothing acute.] Orthostatic vital signs were negative. 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 Patient was given his daily medications of tramadol and gabapentin for his chronic pain. He also received labetalol 10 mg IV. Patient was also ordered Valium 4 mg p.o.] Treatment Plan: [Patient continues to complain of feeling dizzy and not feeling well and he remains hypertensive. He will be admitted.] Disposition: [Admit] Impression: [Dizziness-etiology uncertain Hypertensive urgency] This note was generated with [employer] dictation software. It may contain incorrect words, spelling, and punctuation that were not noted in review of the chart janina or to signing ED Disposition - Plan for ED Patient: Referrals: Jaelyn Lee MD [Primary Care Provider] -
[2019-12-02 14:00] LABS: Absolute Lymphocyte Count 1.16 X10^3/uL (0.83-4.51); Absolute Neutrophil Count 7.5 X10^3/uL (2.0-7.7); Basophil# 0.12 X10^3/uL; Basophil% 1.2 % (0-1); Eosinophil# 0.04 X10^3/uL; Eosinophils% 0.4 % (0-5); Hematocrit 45.6 % (40-54); Hemoglobin 15.6 g/dL (13.0-16.5); Lymphocyte # 1.16 X10^3/ul (4.0); Lymphocyte % 11.9 % (19-41); Mean Corp Hgb Conc 34.2 g/dL (32-36); Mean Corpuscular Hgb 28.6 pg (27.0-32.0); Mean Corpuscular Volume 83.5 fL (80-94); Mean Platelet Vol. 8.1 fl (6.2-12.0); Monocyte# 0.87 X10^3/uL; Monocyte% 8.9 % (0-10); NRBC Flagged by Analyzer 0 % (0-5); Neutrophil # 7.52 X10^3/uL (2.7-7.7); Platelet Count 268 K/mm3 (150-450); RBC Distribution Width CV 14.1 % (11.6-14.6); RBC Distribution Width SD 42.1 fl (35.1-43.9); Red Blood Count 5.46 M/mm3 (4.6-6.2); White Blood Count 9.8 K/mm3 (4.4-11.0)
[2019-12-02 14:15] LABS: Anion Gap 14 (5-15); BUN 15 mg/dL (7-18); BUN/Creat Ratio 15.9 RATIO (10-20); Calcium,Total 9.1 mg/dL (8.5-10.1); Chloride 99 mmol/L (98-107); Creatinine, Serum 0.94 mg/dL (0.70-1.30); EST Glomerular Filtration Rate 88 mL/min (>60); Est Glom Filt Rate - Afr Amer 106 mL/min (>60); Estimated Creatinine Clearance 88.79 ml/min; Glucose 342 mg/dL (74-106); Sodium Level 133 mmol/L (136-145)
[2019-12-02] MEDS: traMADol 50 MG Tablet PO (14:27)
[2019-12-02] MEDS: Ondansetron 4 MG/2 ML Vial IV (14:28)
[2019-12-02] MEDS: 0.9% Normal Saline 1,000 ML 150 ML IV (14:31)
[2019-12-02] MEDS: Gabapentin 800 MG Tablet PO (15:06)
--- NOTE | 2019-12-02 15:34 | HP.PCM_ITS ---
Problem List (1) History of hypercholesterolemia Status: Chronic (2) DKA, type 2 Status: Resolved (3) Sinus tachycardia by electrocardiogram Status: Acute (4) Tremor Status: Chronic (5) HTN (hypertension) Status: Chronic Qualifiers: (6) Diabetic polyneuropathy Status: Chronic Qualifiers: (7) Chronic low back pain Status: Chronic Qualifiers: (8) Fall Status: Chronic Qualifiers: (9) Type II diabetes mellitus, uncontrolled Status: Chronic History of Present Illness Date of Admission: 12/02/19 Chief Complaint: Dizziness. The patient is a 54 year old M who presents the emergency room due to dizziness. Patient states he has had similar episodes of dizziness dating back to 2012. He has a history of previous falls related to dizziness. Reports increased dizziness with head movement. Denies nausea, vomiting. Denies chest pain, shortness of breath. He denies history of stroke. Denies neurologic symptoms or focal deficits. Patient states his blood pressure has been high recently. He was previously on lisinopril which he states he discontinued approximately 1.5 years ago due to cough. He has a past medical history of hypertension, hyperlipidemia, type 2 diabetes mellitus, GERD, chronic back pain, diabetic polyneuropathy. Past Medical History Past Medical History (Chronic Problems): Chronic Problems History of hypercholesterolemia (Chronic) Tremor (Chronic) HTN (hypertension) (Chronic) Diabetic polyneuropathy (Chronic) Chronic low back pain (Chronic) Fall (Chronic) Type II diabetes mellitus, uncontrolled (Chronic) Allergies amitriptyline Allergy (Verified 09/28/19 08:40) Other Penicillins Allergy (Verified 09/28/19 08:40) Unknown pregabalin [From Lyrica] Allergy (Verified 09/28/19 08:40) Shortness of breath duloxetine [From Cymbalta] Adverse Reaction (Verified 09/28/19 08:40) NEEDS FOLLOW-UP temazepam Adverse Reaction (Verified 09/28/19 08:40) Other MYOCLONIC JERKING Home Medications: Ambulatory Orders Medication Instructions Recorded Gabapentin [Neurontin] 800 mg PO TIDCM 01/07/14 metFORMIN HCl [Glucophage] 1,000 mg PO BIDCM 01/07/14 Glimepiride [Amaryl] 2 mg PO DAILY 10/08/14 Aspirin/Acetaminophen/Caffeine 1 capsule PO DAILY PRN PRN 05/09/16 [Excedrin Extra Strength Caplet] traMADol [Ultram] 50 mg PO DAILY 10/30/16 Atorvastatin Calcium 20 mg PO QHS 09/09/18 Losartan Potassium 25 mg PO DAILY 09/09/18 Pantoprazole Sodium [Protonix] 40 mg PO DAILY #60 tablet 09/11/18 Meclizine HCl [Antivert] 12.5 mg PO TID 12/02/19 Surgical History: no surgical history Psychiatric History: - - MRDD Lives: With Family Smoking Status: Never smoker Tobacco Use: Non-smoker Alcohol: Occasional Drugs: None - *Family History Maternal History Items: Diabetes, Heart Disease, Hypertension Paternal History Items: Heart Disease Review of Systems Constitutional: Denies: Chills, Fever, Weight Change HEENT: Denies: Head Aches, Sinus Congestion, Sinus Drainage Cardiovascular: Denies: Chest Pain, Edema, Palpitations, Syncope Respiratory: Denies: Cough, Shortness of breath at rest, Sputum production Gastrointestinal: Denies: Abdominal Pain, Nausea, Vomiting Genitourinary: Denies: Dysuria Musculoskeletal: Denies: Joint Pain, Joint Tenderness Skin: Denies: Rash, Wounds Neurological: Reports: - - Dizziness. Denies: Blurred vision, Double vision, Slurred speech, Focal weakness, Numbness, Tingling Psychiatric: Denies: Anxiety, Depression, Homicidal Ideations, Suicidal Ideations Hematologic/ Lymphatic: Denies: Easy Bruising, Easy Bleeding VTE Information - Inpt Only VTE Present on Admission: No VTE Mechan Device Prophylaxis: None VTE Pharm Prophylaxis ordered?: Yes - Physical Exam Vitals/I&O's: Vital Signs Temp Pulse Resp BP Pulse Ox 96.3 F L 95 19 H 201/86 H 98 12/02/19 13:15 12/02/19 14:49 12/02/19 13:15 12/02/19 14:49 12/02/19 13:15 Oxygen Delivery Method Room Air Weight: 263 lb 3.711 oz Body Mass Index (BMI) 38.8 Finger Stick Blood Glucose 267 General: Alert, Oriented x3, Cooperative HEENT: Atraumatic, PERRLA, EOMI, Normocephalic, - - Poor dentition Neck: Supple, No JVD, Negative Carotid Bruits Lungs: Clear to auscultation, Normal air movement Cardiovascular: Regular rate, No murmurs Abdomen: Bowel Sounds Present, Soft, Non Tender, Non-Distended Extremities: No clubbing, No cyanosis, No edema, Capillary Refill Less than 3 Seconds Skin: No rashes, No breakdown Musculoskeletal: No Tenderness to Palpation of Joints or Extremities Neurological: Cranial nerves II-XII grossly intact, Neuro grossly intact Psych/Mental Status: Normal Affect, Appropriate Laboratory Results 12/02/19 13:31: WBC 9.8, RBC 5.46, Hgb 15.6, Hct 45.6, MCV 83.5, MCH 28.6, MCHC 34.2, RDW Std Deviation 42.1, RDW Coeff of Amirah 14.1, Plt Count 268, MPV 8.1, Immature Gran % (Auto) 0.600, Neut % (Auto) 77.0 H, Lymph % (Auto) 11.9 L, [place] % (Auto) 8.9, Eos % (Auto) 0.4, Baso % (Auto) 1.2 H, Absolute Neuts (auto) 7.5, Absolute Lymphs (auto) 1.16, Nucleated RBC % 0 12/02/19 13:31: Sodium 133 L, Potassium 4.0, Chloride 99, Carbon Dioxide 20.0 L, Anion Gap 14, BUN 15, Creatinine 0.94, Estim Creat Clear Calc 88.79, Est GFR (MDRD) Af Amer 106, Est GFR (MDRD) Non-Af 88, BUN/Creatinine Ratio 15.9, Glucose 342 H, Calcium 9.1, Troponin I < 0.015 Current Medications Gabapentin (Neurontin) 800 mg PO TIDCM [facility] Last Admin: 12/02/19 15:06 Dose: 800 mg Documented by: Sodium Chloride () 1,000 mls @ 150 mls/hr IV .[id number] [facility] Last Admin: 12/02/19 14:31 Dose: 150 mls/hr Documented by: Assessment/Plan All Active Problems Sinus tachycardia by electrocardiogram (Acute) DKA, type 2 (Resolved) 1. Uncontrolled Hypertension-continue home losartan regimen. Increase home amlodipine regimen to 10 mg daily. Initiated on metoprolol 50 mg twice daily. 2. Dizziness, suspect BPPV-on PRN meclizine at baseline. Patient denies prior history of stroke. States he is had intermittent dizziness since 2012 with prior normal MRI per patient. Initiate scheduled Valium. PT/OT. Suspect uncontrolled blood pressure contributing to dizziness. 3. Hyperlipidemia-continue statin. 4. Type 2 diabetes [id number] with sliding scale insulin. Continue oral regimen. 5. GERD- on PPI. 6. Chronic back pain- on gapapentin. PRN tramadol. 7. Diabetic polyneuropathy- on gabapentin. DVT prophylaxis-Lovenox subcu This patient was seen by JOLIE Andrade under the supervision of Dr. Beckwith.
[2019-12-02] MEDS: diazePAM 2 MG Tablet 4 MG PO ×2 (15:37→22:11)
[2019-12-02] MEDS: Losartan Potassium 100 MG Tablet PO (18:26)
[2019-12-02] MEDS: metFORMIN HCl 1,000 MG Tablet 1000 MG PO (18:26)
[2019-12-02] MEDS: amLODIPine 5 MG Tablet PO (18:26)
[2019-12-02] MEDS: Metoprolol Tartrate 50 MG Tablet PO ×2 (18:26→22:10)
[2019-12-02] MEDS: Insulin Lispro 100 UNIT/ML INSULN.PEN SC ×2 (18:38→22:09)
[2019-12-02 18:45] LABS: Bedside Glucose 322 mg/dL (70-110)
--- NOTE | 2019-12-02 20:12 | NURSING ---
Patient is complaining of pain in his back and neck. Patient states that Tylenol has not worked for his pain. He is rating this pain an 8/10. Dr. Tolbert notified.
[2019-12-02] MEDS: cycloBENZAPRine HCl 10 MG Tablet 5 MG PO (20:41)
[2019-12-02] MEDS: oxyCODONE 5 MG Tablet PO (20:41)
[2019-12-02] MEDS: Ketorolac 15 MG/ML Vial IV (20:42)
[2019-12-02] MEDS: 0.9% Saline Lock 10 ML Syringe IV (20:42)
[2019-12-02] MEDS: Heparin Injection (Vial) 5,000 UNIT/ML VIAL 5000 UNIT SC (22:08)
[2019-12-02] MEDS: Atorvastatin Calcium 20 MG Tablet PO (22:11)
[2019-12-02 22:20] LABS: Bedside Glucose 253 mg/dL (70-110)
[2019-12-03] VITALS (8 sets, daily range): BP systolic 129–145; BP diastolic 68–74; PULSE 65–84; RESP 16–18; TEMP 36.4–37.2; O2SAT 98
[2019-12-03] MEDS: Acetaminophen 325 MG Tablet 650 MG PO (04:33)
[2019-12-03] MEDS: Insulin Lispro 100 UNIT/ML INSULN.PEN SC ×2 (06:11→12:05)
[2019-12-03] MEDS: diazePAM 2 MG Tablet 4 MG PO (06:12)
[2019-12-03] MEDS: Glimepiride 4 MG Tablet PO (08:42)
[2019-12-03] MEDS: metFORMIN HCl 1,000 MG Tablet 1000 MG PO (08:42)
[2019-12-03] MEDS: Gabapentin 800 MG Tablet PO ×2 (08:42→12:06)
--- NOTE | 2019-12-03 09:10 | PCM.CONS.GEN ---
Problem List (1) Tinea unguium Status: Chronic (2) Other hereditary and idiopathic neuropathies Status: Chronic (3) Toe pain, right Status: Chronic (4) Toe pain, left Status: Chronic (5) Claudication Status: Suspected (6) Diabetic polyneuropathy Status: Chronic Qualifiers: Reason for Consult Date of Consultation: 12/03/19 Reason for Consultation: Long thick toenails History of Present Illness: The patient is a 54 year old M with diabetes that was admitted for dizziness with seen bedside this morning for long thick flaking and painful toenails that he is unable to trim on his own. He asked for help safely turning his today. They are uncomfortable and he has mild to moderate discomfort with direct pressure. He does have some lack of normal sensation to the feet and reports he has neuropathy. He also reports that he has some cramping in the legs while walking. Some of it seems to be associate with his knees however some does sound consistent with claudication. He reports that he has been told that he has circulatory problems however no intervention was pursued. He also reports he had a prior history of a foot ulcer which healed uneventfully. He denies lower extremity rest pain. He denies current redness, ulcer, or other pedal complaints today. Past Medical History Past Medical History (Chronic Problems): Chronic Problems History of hypercholesterolemia (Chronic) Tinea unguium (Chronic) Other hereditary and idiopathic neuropathies (Chronic) Toe pain, right (Chronic) Toe pain, left (Chronic) Tremor (Chronic) HTN (hypertension) (Chronic) Diabetic polyneuropathy (Chronic) Chronic low back pain (Chronic) Fall (Chronic) Type II diabetes mellitus, uncontrolled (Chronic) Allergies amitriptyline Allergy (Verified 09/28/19 08:40) Other Penicillins Allergy (Verified 09/28/19 08:40) Unknown pregabalin [From Lyrica] Allergy (Verified 09/28/19 08:40) Shortness of breath duloxetine [From Cymbalta] Adverse Reaction (Verified 09/28/19 08:40) NEEDS FOLLOW-UP temazepam Adverse Reaction (Verified 09/28/19 08:40) Other MYOCLONIC JERKING Home Medications: Ambulatory Orders Medication Instructions Recorded Gabapentin [Neurontin] 800 mg PO TIDCM 01/07/14 metFORMIN HCl [Glucophage] 1,000 mg PO BIDCM 01/07/14 Glimepiride [Amaryl] 2 mg PO DAILY 10/08/14 Aspirin/Acetaminophen/Caffeine 1 capsule PO DAILY PRN PRN 05/09/16 [Excedrin Extra Strength Caplet] traMADol [Ultram] 50 mg PO DAILY 10/30/16 Atorvastatin Calcium 20 mg PO QHS 09/09/18 Pantoprazole Sodium [Protonix] 40 mg PO DAILY #60 tablet 09/11/18 Amlodipine Besylate [Norvasc] 2.5 mg PO DAILY 12/02/19 Furosemide [Lasix] 20 mg PO DAILY PRN 12/02/19 Meclizine HCl [Antivert] 12.5 mg PO TID 12/02/19 Surgical History: no surgical history Psychiatric History: - - MRDD Lives: With Family Smoking Status: Never smoker Tobacco Use: Non-smoker Alcohol: Occasional Drugs: None - *Family History Maternal History Items: Diabetes, Heart Disease, Hypertension Paternal History Items: Heart Disease Review of Systems Constitutional: Denies: Chills, Fever Cardiovascular: Reports: Claudication Respiratory: Denies: Cough Musculoskeletal: Denies: Leg Pain, Muscle pain Skin: Reports: - - Nail changes. Denies: Skin Changes, Wounds Neurological: Reports: Balance problems, Incoordination, Numbness Patient Problems: Active and Suspected Problems Claudication (Suspected) - Physical Exam Vitals/I&O's: Vital Signs Temp Pulse Resp BP Pulse Ox 98.2 F 65 16 129/68 H 98 12/03/19 02:15 12/03/19 03:00 12/03/19 02:15 12/03/19 02:15 12/03/19 02:15 Oxygen Delivery Method Room Air Weight: 115.9 kg Body Mass Index (BMI) 37.7 Finger Stick Blood Glucose 267 Intake and Output for Last 24 Hours 12/01/19 12/02/19 12/03/19 23:59 23:59 23:59 Intake Total 347.5 / 597.5 910 / 910 Output Total 250 / 250 Balance 347.5 / 597.5 660 / 660 General: Alert, Oriented x3, Cooperative HEENT: Atraumatic Extremities: No cyanosis, Capillary Refill Less than 3 Seconds - The feet are warm to touch ranging from the heel to the toes. His lack of hair. His skin turgor is slightly atrophic., No Calf Tenderness, Diminished Peripheral Pulses - Nonpalpable PT and DP pulses bilateral, Edema - Mild lower extremity edema bilateral Skin: - - There is no skin discontinuity maceration, erythema, eschar, or infection bilateral. The toenails 1, 2, 3, 4, 5 are long, thick, dystrophic, with subungual debris and incurvated at the medial lateral borders. Nails are painful with compression bilateral. Musculoskeletal: No Tenderness to Palpation of Joints or Extremities, Muscle Wasting, - - Active range of motion digits and ankles bilateral. Compartments are soft to palpate bilateral Neurological: - - Lack of epicritic sensation to light touch is consistent with neuropathy status Psych/Mental Status: Normal Affect, Appropriate Laboratory Results 12/02/19 13:31: WBC 9.8, RBC 5.46, Hgb 15.6, Hct 45.6, MCV 83.5, MCH 28.6, MCHC 34.2, RDW Std Deviation 42.1, RDW Coeff of Amirah 14.1, Plt Count 268, MPV 8.1, Immature Gran % (Auto) 0.600, Neut % (Auto) 77.0 H, Lymph % (Auto) 11.9 L, Clayton % (Auto) 8.9, Eos % (Auto) 0.4, Baso % (Auto) 1.2 H, Absolute Neuts (auto) 7.5, Absolute Lymphs (auto) 1.16, Nucleated RBC % 0 12/02/19 13:31: Sodium 133 L, Potassium 4.0, Chloride 99, Carbon Dioxide 20.0 L, Anion Gap 14, BUN 15, Creatinine 0.94, Estim Creat Clear Calc 88.79, Est GFR (MDRD) Af Amer 106, Est GFR (MDRD) Non-Af 88, BUN/Creatinine Ratio 15.9, Glucose 342 H, Calcium 9.1, Troponin I < 0.015 12/02/19 18:29: POC Glucose 322 H 12/02/19 22:07: POC Glucose 253 H Current Medications Acetaminophen (Tylenol) 650 mg PO Q6H PRN PRN PRN Reason: Pain Score 1-10/Temp > 100.7 F Last Admin: 12/03/19 04:33 Dose: 650 mg Documented by: Amlodipine Besylate (Norvasc) 5 mg PO DAILY KIM Atorvastatin Calcium (Lipitor) 20 mg PO QHS [facility] Last Admin: 12/02/19 22:11 Dose: 20 mg Documented by: Dextrose (D50w Syringe) 0 gm IV X1 PRN; Protocol PRN Reason: Hypoglycemia Diazepam (Valium) 4 mg PO TID [facility] [place] Last Admin: 12/03/19 06:12 Dose: 4 mg Documented by: Gabapentin (Neurontin) 800 mg PO TIDCM [facility] [place] Last Admin: 12/03/19 08:42 Dose: 800 mg Documented by: Glimepiride (Amaryl) 4 mg PO DAILY@0800 [facility] [place] Last Admin: 12/03/19 08:42 Dose: 4 mg Documented by: Glucagon () 1 mg IM .X1 PRN PRN Reason: Hypoglycemia Heparin Sodium (Porcine) (Heparin Na) 5,000 unit SC Q12 [facility] [place] Last Admin: 12/02/19 22:08 Dose: 5,000 unit Documented by: Sodium Chloride () 250 mls @ 15 mls/hr IV .[id number] PRN PRN Reason: Saline Flush Sodium Chloride () 250 mls @ 15 mls/hr IV .[id number] PRN PRN Reason: Additional IVPB Infusion Insulin Human Lispro (Humalog Kwikpen (Bkc)) 0 unit SC ACHS [facility] [place]; Protocol Last Admin: 12/03/19 06:11 Dose: 4 u Documented by: Losartan Potassium (Cozaar) 100 mg PO DAILY [facility] Metformin HCl (Glucophage) 1,000 mg PO BIDCM [facility] [place] Last Admin: 12/03/19 08:42 Dose: 1,000 mg Documented by: Metoprolol Tartrate (Lopressor (Beta Pj)) 50 mg PO BID [facility] [place] Last Admin: 12/02/19 22:10 Dose: 50 mg Documented by: Ondansetron HCl (Zofran) 4 mg IV Q8H PRN PRN PRN Reason: NAUSEA/VOMITING Pantoprazole Sodium (Protonix) 40 mg PO DAILY [facility] [place] Sodium Chloride () 10 - 40 ml IV UD PRN PRN Reason: SALINE FLUSH Last Admin: 12/02/19 20:42 Dose: 10 ml Documented by: Assessment/Plan All Active Problems Sinus tachycardia by electrocardiogram (Acute) DKA, type 2 (Resolved) Tinea unguium versus onychauxis Right and left toe pain Diabetes with neuropathy Claudication and peripheral vascular disease suspected without tissue loss or acute limb ischemia Other acute and chronic comorbidities noted I reviewed his case. His vitals are stable and he does not demonstrate any leukocytosis. He is not have any local signs of wounds or infections were extremities. His toenails were debrided in length and thickness with a nail nipper bilateral 1, 2, 3, 4, 5 without incident. Verbal consent was obtained for this procedure. He tolerated this well. The purpose of the debridement was to reduce fungal versus microtrauma load, reduce pressure and prevent ulcer formation. He does have a history of foot ulceration and he was advised to check his feet daily. He reports he already does this and even uses a mirror to look at the bottom of the feet. He was also advised to keep his feet moisturized to keep the skin intact. I do recommend screening him in the outpatient setting with a noninvasive vascular study due to his reported claudication and history of lower extremity ulcers. I recommend he follows up with the [facility] after this test is completed, and also to follow-up for routine palliative care. He is at risk for ulcer formation of the lower extremity issues due to his findings. Medical management per hospitalist services noted. Thank you for the consult. Please not hesitate to call if you have any questions. Reena Toledo DPM, FACFAS [facility] [phone]
--- NOTE | 2019-12-03 10:07 | DCINST_ITS ---
Weight Bearing Status: Weight bearing as tolerated Additional Instructions: Complete lower extremity arterial studies (segmental pressures, ALBERTINA, systolic toe pressures) and follow up [facility] to review. Allergies/Adverse Reactions: Allergies amitriptyline Allergy (Verified 09/28/19 08:40) Other Penicillins Allergy (Verified 09/28/19 08:40) Unknown pregabalin [From Lyrica] Allergy (Verified 09/28/19 08:40) Shortness of breath duloxetine [From Cymbalta] Adverse Reaction (Verified 09/28/19 08:40) NEEDS FOLLOW-UP temazepam Adverse Reaction (Verified 09/28/19 08:40) Other MYOCLONIC JERKING Medications to take at Discharge Gabapentin [Neurontin] 800 mg PO TIDCM 01/07/14 metFORMIN HCl [Glucophage] 1,000 mg PO BIDCM 01/07/14 Glimepiride [Amaryl] 2 mg PO DAILY 10/08/14 Aspirin/Acetaminophen/Caffeine [Excedrin Extra Strength Caplet] 1 capsule PO DAILY PRN PRN 05/09/16 traMADol [Ultram] 50 mg PO DAILY 10/30/16 Atorvastatin Calcium 20 mg PO QHS 09/09/18 Pantoprazole Sodium [Protonix] 40 mg PO DAILY #60 tablet 09/11/18 Amlodipine Besylate [Norvasc] 2.5 mg PO DAILY 12/02/19 Furosemide [Lasix] 20 mg PO DAILY PRN 12/02/19 Meclizine HCl [Antivert] 12.5 mg PO TID 12/02/19 Primary Care Physician: Jaelyn Lee MD [Primary Care Provider] - Test Results: Test results from this visit will be discussed in further detail at your follow- up appointment, if applicable. Please Follow Up With: Reena Toledo DPM When: within 1 month for test review and 3 months for nail care.Call [phone]
[2019-12-03] MEDS: Losartan Potassium 100 MG Tablet PO (10:56)
[2019-12-03] MEDS: Heparin Injection (Vial) 5,000 UNIT/ML VIAL 5000 UNIT SC (10:56)
[2019-12-03] MEDS: Pantoprazole Sodium 40 MG Tablet PO (10:56)
[2019-12-03] MEDS: amLODIPine 5 MG Tablet PO (10:57)
[2019-12-03] MEDS: Metoprolol Tartrate 50 MG Tablet PO (10:57)
--- NOTE | 2019-12-03 13:00 | PCM.PROGNOTE ---
Patient Problems: Active and Suspected Problems Claudication (Suspected) Subjective: Patient seen and examined. Blood pressure significantly improved today. Patient reports ongoing dizziness with difficulty walking due to feeling unsteady. Patient feels he may need rehab at discharge. - Physical Exam Vitals/I&O's: Vital Signs Temp Pulse Resp BP Pulse Ox 97.6 F L 72 18 145/73 H 98 12/03/19 08:15 12/03/19 10:57 12/03/19 10:00 12/03/19 10:57 12/03/19 08:15 Oxygen Delivery Method Room Air Weight: 255 lb 8.252 oz Body Mass Index (BMI) 37.7 Finger Stick Blood Glucose 267 Intake and Output for Last 24 Hours 12/01/19 12/02/19 12/03/19 23:59 23:59 23:59 Intake Total 347.5 / 597.5 1260 / 1260 Output Total 250 / 250 Balance 347.5 / 597.5 1010 / 1010 General: Alert, Oriented x3, Cooperative HEENT: Atraumatic, PERRLA, EOMI, Normocephalic Oral: - - Poor dentition Neck: Supple, No JVD, Negative Carotid Bruits Lungs: Clear to auscultation, Normal air movement Cardiovascular: Regular rate, No murmurs Abdomen: Bowel Sounds Present, Soft, Non Tender, Non-Distended Extremities: No clubbing, No cyanosis, No edema, Capillary Refill Less than 3 Seconds Skin: No rashes, No breakdown Musculoskeletal: No Tenderness to Palpation of Joints or Extremities Neurological: Cranial nerves II-XII grossly intact, Neuro grossly intact Psych/Mental Status: Flat Affect Laboratory Results 12/02/19 13:31: WBC 9.8, RBC 5.46, Hgb 15.6, Hct 45.6, MCV 83.5, MCH 28.6, MCHC 34.2, RDW Std Deviation 42.1, RDW Coeff of Amirah 14.1, Plt Count 268, MPV 8.1, Immature Gran % (Auto) 0.600, Neut % (Auto) 77.0 H, Lymph % (Auto) 11.9 L, George % (Auto) 8.9, Eos % (Auto) 0.4, Baso % (Auto) 1.2 H, Absolute Neuts (auto) 7.5, Absolute Lymphs (auto) 1.16, Nucleated RBC % 0 12/02/19 13:31: Sodium 133 L, Potassium 4.0, Chloride 99, Carbon Dioxide 20.0 L, Anion Gap 14, BUN 15, Creatinine 0.94, Estim Creat Clear Calc 88.79, Est GFR (MDRD) Af Amer 106, Est GFR (MDRD) Non-Af 88, BUN/Creatinine Ratio 15.9, Glucose 342 H, Calcium 9.1, Troponin I < 0.015 12/02/19 18:29: POC Glucose 322 H 12/02/19 22:07: POC Glucose 253 H Current Medications Acetaminophen (Tylenol) 650 mg PO Q6H PRN PRN PRN Reason: Pain Score 1-10/Temp > 100.7 F Last Admin: 12/03/19 04:33 Dose: 650 mg Documented by: Amlodipine Besylate (Norvasc) 5 mg PO DAILY [facility] Last Admin: 12/03/19 10:57 Dose: 5 mg Documented by: Atorvastatin Calcium (Lipitor) 20 mg PO QHS [facility] Last Admin: 12/02/19 22:11 Dose: 20 mg Documented by: Dextrose (D50w Syringe) 0 gm IV X1 PRN; Protocol PRN Reason: Hypoglycemia Diazepam (Valium) 4 mg PO TID [facility] Last Admin: 12/03/19 06:12 Dose: 4 mg Documented by: Gabapentin (Neurontin) 800 mg PO TIDCM [facility] Last Admin: 12/03/19 12:06 Dose: 800 mg Documented by: Glimepiride (Amaryl) 4 mg PO DAILY@0800 [facility] Last Admin: 12/03/19 08:42 Dose: 4 mg Documented by: Glucagon () 1 mg IM .X1 PRN PRN Reason: Hypoglycemia Heparin Sodium (Porcine) (Heparin Na) 5,000 unit SC Q12 [facility] Last Admin: 12/03/19 10:56 Dose: 5,000 unit Documented by: Sodium Chloride () 250 mls @ 15 mls/hr IV .[id number] PRN PRN Reason: Saline Flush Sodium Chloride () 250 mls @ 15 mls/hr IV .[id number] PRN PRN Reason: Additional IVPB Infusion Insulin Human Lispro (Humalog Kwikpen (Bkc)) 0 unit SC ACHS [facility]; Protocol Last Admin: 12/03/19 12:05 Dose: 6 u Documented by: Losartan Potassium (Cozaar) 100 mg PO DAILY [facility] Last Admin: 12/03/19 10:56 Dose: 100 mg Documented by: [facility] Last Admin: 12/03/19 08:42 Dose: 1,000 mg Documented by: Metoprolol Tartrate (Lopressor (Beta Pj)) 50 mg PO BID [facility] Last Admin: 12/03/19 10:57 Dose: 50 mg Documented by: Ondansetron HCl (Zofran) 4 mg IV Q8H PRN PRN PRN Reason: NAUSEA/VOMITING Pantoprazole Sodium (Protonix) 40 mg PO DAILY [facility] Last Admin: 12/03/19 10:56 Dose: 40 mg Documented by: Sodium Chloride () 10 - 40 ml IV UD PRN PRN Reason: SALINE FLUSH Last Admin: 12/02/19 20:42 Dose: 10 ml Documented by: Medical Necessity - Tobacco Use Smoking Status: Never smoker Tobacco Use: Non-smoker Assessment/Plan All Active Problems Sinus tachycardia by electrocardiogram (Acute) DKA, type 2 (Resolved) 1. Uncontrolled Hypertension, secondary to noncompliance with medication regimen-continue home losartan regimen. Amlodipine increased to 5 mg daily. Continue metoprolol 50 mg twice daily. Blood pressure currently well controlled. Patient sister states patient was not taking any of his medications for several months prior to admission. 2. Dizziness, suspect BPPV-on PRN meclizine at baseline. Patient denies prior history of stroke. States he is had intermittent dizziness since 2012 with prior normal MRI per patient. Continue scheduled Valium. PT/OT. Brain CT on admission unremarkable. PT is recommending additional therapy. 3. Hyperlipidemia-continue statin. 4. Type 2 diabetes [id number] with sliding scale insulin. Continue oral regimen. 5. GERD- on PPI. 6. Chronic back pain- on gapapentin. PRN tramadol. 7. Diabetic polyneuropathy- on gabapentin. DVT prophylaxis-Lovenox subcu This patient was seen by JOLIE Andrade under the supervision of Dr. Beckwith.
[2019-12-03] MEDS: diazePAM 5 MG Tablet PO (14:17)
--- NOTE | 2019-12-03 14:19 | DCINST_ITS ---
- Discharge Diagnoses Current Active Problems: Current Active and Chronic Problems Tinea unguium (Chronic) Other hereditary and idiopathic neuropathies (Chronic) Toe pain, right (Chronic) Toe pain, left (Chronic) You will use the following diet at home:: Cardiac Discharge Activity: Return to Normal Activity Weight Bearing Status: Weight bearing as tolerated Call your doctor if you observe: Shortness of breath, Dizziness, Fainting spells, Chest pain Allergies/Adverse Reactions: Allergies amitriptyline Allergy (Verified 09/28/19 08:40) Other Penicillins Allergy (Verified 09/28/19 08:40) Unknown pregabalin [From Lyrica] Allergy (Verified 09/28/19 08:40) Shortness of breath duloxetine [From Cymbalta] Adverse Reaction (Verified 09/28/19 08:40) NEEDS FOLLOW-UP temazepam Adverse Reaction (Verified 09/28/19 08:40) Other MYOCLONIC JERKING Medications to take at Discharge Aspirin/Acetaminophen/Caffeine [Excedrin Extra Strength Caplet] 1 capsule PO DAILY PRN PRN 05/09/16 traMADol [Ultram] 50 mg PO DAILY 10/30/16 Pantoprazole Sodium [Protonix] 40 mg PO DAILY #60 tablet 09/11/18 Meclizine HCl [Antivert] 12.5 mg PO TID 12/02/19 Amlodipine [Norvasc] 10 mg PO DAILY #60 tab 12/03/19 Atorvastatin Calcium 20 mg PO DAILY #60 tab 12/03/19 Diazepam [Valium] 5 mg PO TID PRN #10 tab 12/03/19 Gabapentin [Neurontin] 400 mg PO TID #90 cap 12/03/19 Glimepiride [Amaryl] 4 mg PO DAILY@0800 #60 tab 12/03/19 Losartan Potassium [Cozaar] 100 mg PO DAILY #60 tab 12/03/19 metFORMIN (XR) [Glucophage Xr] 1,000 mg PO DAILY #120 tab 12/03/19 The following prescriptions were given: Glimepiride [Amaryl] 4 mg PO DAILY@0800 #60 tab [facility] Atorvastatin Calcium 20 mg PO DAILY #60 tab Transmission Status: Received by [facility] Losartan Potassium [Cozaar] 100 mg PO DAILY #60 tab Transmission Status: Received by [facility] metFORMIN (XR) [Glucophage Xr] 1,000 mg PO DAILY #120 tab Transmission Status: Received by [facility] Gabapentin [Neurontin] 400 mg PO TID #90 cap Transmission Status: Pending to [facility] Amlodipine [Norvasc] 10 mg PO DAILY #60 tab Transmission Status: Pending to [facility] Diazepam [Valium] 5 mg PO TID PRN #10 tab PRN Reason: Dizziness Transmission Status: Received by [facility] Primary Care Physician: Jaelyn Lee MD [Primary Care Provider] - Please follow up with your Primary Care Physician in: 1 Week Test Results: Test results from this visit will be discussed in further detail at your follow- up appointment, if applicable. Please Follow Up With: Reena Toledo DPM When: within 1 month for test review and 3 months for nail care.Call [phone] Proposed Discharge Date: 12/03/19
--- NOTE | 2019-12-03 14:27 | DS.PCM_ITS ---
Discharge Date and Diagnosis Date of Admission: 12/02/19 Date of Discharge: 12/03/19 - Primary Discharge Diagnosis Acute Problems: 1. Uncontrolled Hypertension, secondary to noncompliance with medication regimen 2. Dizziness, suspect BPPV 3. Hyperlipidemia 4. Type 2 diabetes mellitus 5. GERD 6. Chronic back pain 7. Diabetic polyneuropathy 8. Tinea unguium versus onychauxis Suspected Problems: Suspected Problems Claudication (Suspected) - Secondary Discharge Diagnosis Chronic Problems: Chronic Problems History of hypercholesterolemia (Chronic) Tinea unguium (Chronic) Other hereditary and idiopathic neuropathies (Chronic) Toe pain, right (Chronic) Toe pain, left (Chronic) Tremor (Chronic) HTN (hypertension) (Chronic) Diabetic polyneuropathy (Chronic) Chronic low back pain (Chronic) Fall (Chronic) Type II diabetes mellitus, uncontrolled (Chronic) Hospital Course and Treatment Imaging Results: Diagnostic Data Brain CT 12/02/19 13:48 IMPRESSION: 1. No CT evidence of intracranial bleeding, acute ischemic infarct or acute intracranial abnormality. 2. Chronic white matter ischemic changes in the left anterior periventricular white matter and left parietal lobe subcortical white matter were present previously and unchanged. Electronically Signed: Kike Doherty MD at 14:32 EDT , Service support , Dr. Toledo-Podiatry Operations: None Procedures: None Summary of Care Provided: The patient is a 54 year old M admitted 12/02/2019 due to dizziness. 1. Uncontrolled Hypertension, secondary to noncompliance with medication regimen-continue home losartan regimen. Amlodipine increased to 10 mg daily. Blood pressure currently well controlled. Patient sister states patient was not taking any of his medications for several months prior to admission. Patient was given a 60-day supply of medications at discharge. Family reports they will help make sure medications are being taken at home. Follow-up with primary care in 1 week. 2. Dizziness, suspect BPPV-on PRN meclizine at baseline. Patient denies prior history of stroke. States he is had intermittent dizziness since 2012 with prior normal MRI per patient. Continue PRN Valium. Brain CT on admission unremarkable. Follow-up with PCP as outpatient. 3. Hyperlipidemia-continue statin. 4. Type 2 diabetes mellitus-continue home metformin and glimepiride regimen. 5. GERD- on PPI. 6. Chronic back pain- on gapapentin. PRN tramadol. 7. Diabetic polyneuropathy- on gabapentin. 8. Tinea unguium versus onychauxis-podiatry consulted during admission. Toenails debrided. Outpatient follow-up with podiatry. General: Alert, Oriented x3, Cooperative HEENT: Atraumatic, PERRLA, EOMI, Normocephalic Oral: - - Poor dentition Neck: Supple, No JVD, Negative Carotid Bruits Lungs: Clear to auscultation, Normal air movement Cardiovascular: Regular rate, No murmurs Abdomen: Bowel Sounds Present, Soft, Non Tender, Non-Distended Extremities: No clubbing, No cyanosis, No edema, Capillary Refill Less than 3 Seconds Skin: No rashes, No breakdown Musculoskeletal: No Tenderness to Palpation of Joints or Extremities Neurological: Cranial nerves II-XII grossly intact, Neuro grossly intact Psych/Mental Status: Flat Affect Patient seen and examined prior to discharge. Physical assessment as noted above. Patient is stable for discharge with follow up recommendations as noted above. This patient was seen by JOLIE Andrade under the supervision of Dr. Beckwith. - Physical Exam Vitals/I&O's: Vital Signs Temp Pulse Resp BP Pulse Ox 97.6 F L 72 18 145/73 H 98 12/03/19 08:15 12/03/19 10:57 12/03/19 10:00 12/03/19 10:57 12/03/19 08:15 Oxygen Delivery Method Room Air Weight: 255 lb 8.252 oz Body Mass Index (BMI) 37.7 Finger Stick Blood Glucose 267 Intake and Output for Last 24 Hours 12/01/19 12/02/19 12/03/19 23:59 23:59 23:59 Intake Total 347.5 / 597.5 1260 / 1260 Output Total 250 / 250 Balance 347.5 / 597.5 1010 / 1010 Laboratory Results 12/02/19 18:29: POC Glucose 322 H 12/02/19 22:07: POC Glucose 253 H Current Medications Acetaminophen (Tylenol) 650 mg PO Q6H PRN PRN PRN Reason: Pain Score 1-10/Temp > 100.7 F Last Admin: 12/03/19 04:33 Dose: 650 mg Documented by: Amlodipine Besylate (Norvasc) 5 mg PO DAILY [facility] Last Admin: 12/03/19 10:57 Dose: 5 mg Documented by: Atorvastatin Calcium (Lipitor) 20 mg PO QHS [facility] Last Admin: 12/02/19 22:11 Dose: 20 mg Documented by: Dextrose (D50w Syringe) 0 gm IV X1 PRN; Protocol PRN Reason: Hypoglycemia Diazepam (Valium) 5 mg PO TID [facility] Last Admin: 12/03/19 14:17 Dose: 5 mg Documented by: Gabapentin (Neurontin) 800 mg PO TIDCM [facility] Last Admin: 12/03/19 12:06 Dose: 800 mg Documented by: Glimepiride (Amaryl) 4 mg PO DAILY@0800 [facility] Last Admin: 12/03/19 08:42 Dose: 4 mg Documented by: Glucagon () 1 mg IM .X1 PRN PRN Reason: Hypoglycemia Heparin Sodium (Porcine) (Heparin Na) 5,000 unit SC Q12 [facility] Last Admin: 12/03/19 10:56 Dose: 5,000 unit Documented by: Sodium Chloride () 250 mls @ 15 mls/hr IV .[id number] PRN PRN Reason: Saline Flush Sodium Chloride () 250 mls @ 15 mls/hr IV .[id number] PRN PRN Reason: Additional IVPB Infusion Insulin Human Lispro (Humalog Kwikpen (Bkc)) 0 unit SC ACHS [facility]; Protocol Last Admin: 12/03/19 12:05 Dose: 6 u Documented by: Losartan Potassium (Cozaar) 100 mg PO DAILY [facility] Last Admin: 12/03/19 10:56 Dose: 100 mg Documented by: Metformin HCl (Glucophage) 1,000 mg PO BIDCM [facility] Last Admin: 12/03/19 08:42 Dose: 1,000 mg Documented by: Metoprolol Tartrate (Lopressor (Beta Pj)) 50 mg PO BID [facility] Last Admin: 12/03/19 10:57 Dose: 50 mg Documented by: Ondansetron HCl (Zofran) 4 mg IV Q8H PRN PRN PRN Reason: NAUSEA/VOMITING Pantoprazole Sodium (Protonix) 40 mg PO DAILY [facility] Last Admin: 12/03/19 10:56 Dose: 40 mg Documented by: Sodium Chloride () 10 - 40 ml IV UD PRN PRN Reason: SALINE FLUSH Last Admin: 12/02/19 20:42 Dose: 10 ml Documented by: Discharge Diet: Low fat/ Low Cholesterol Discharge Activity: Return to Normal Activity Weight Bearing Status: Weight bearing as tolerated Call your doctor if you observe: Shortness of breath, Dizziness, Fainting spells, Chest pain Home Medications: Medications to take at Discharge Aspirin/Acetaminophen/Caffeine [Excedrin Extra Strength Caplet] 1 capsule PO DAILY PRN PRN 05/09/16 traMADol [Ultram] 50 mg PO DAILY 10/30/16 Pantoprazole Sodium [Protonix] 40 mg PO DAILY #60 tablet 09/11/18 Meclizine HCl [Antivert] 12.5 mg PO TID 12/02/19 Amlodipine [Norvasc] 10 mg PO DAILY #60 tab 12/03/19 Atorvastatin Calcium 20 mg PO DAILY #60 tab 12/03/19 Diazepam [Valium] 5 mg PO TID PRN #10 tab 12/03/19 Gabapentin [Neurontin] 400 mg PO TID #90 cap 12/03/19 Glimepiride [Amaryl] 4 mg PO DAILY@0800 #60 tab 12/03/19 Losartan Potassium [Cozaar] 100 mg PO DAILY #60 tab 12/03/19 metFORMIN (XR) [Glucophage Xr] 1,000 mg PO DAILY #120 tab 12/03/19 Following Prescrptions Were Given to Patient: Glimepiride [Amaryl] 4 mg PO DAILY@0800 #60 tab Transmission Status: Received by [facility] Atorvastatin Calcium 20 mg PO DAILY #60 tab Transmission Status: Received by [facility] Losartan Potassium [Cozaar] 100 mg PO DAILY #60 tab Transmission Status: Received by [facility] metFORMIN (XR) [Glucophage Xr] 1,000 mg PO DAILY #120 tab Transmission Status: Received by [facility] Gabapentin [Neurontin] 400 mg PO TID #90 cap Transmission Status: Pending to [facility] Amlodipine [Norvasc] 10 mg PO DAILY #60 tab Transmission Status: Pending to [facility] Diazepam [Valium] 5 mg PO TID PRN #10 tab PRN Reason: Dizziness Transmission Status: Received by [facility] Primary Care Physician: Jaelyn Lee MD [Primary Care Provider] - Please follow up with your Primary Care Physician in: 1 Week Please Follow Up With: Reena Toledo DPM When: within 1 month for test review and 3 months for nail care.Call [phone] Additional Instructions: Complete lower extremity arterial studies (segmental pressures, ALBERTINA, systolic toe pressures) and follow up at [facility] to review. Disposition: Home Minutes spent on discharge:: 35 Patient Condition:: Stable Medical Necessity - Tobacco Use Smoking Status: Never smoker Tobacco Use: Non-smoker Meaningful Use Info Meaningful Use Diagnoses (Choose all that apply): None applicable
[2019-12-03 17:03] LABS: Bedside Glucose 247 mg/dL (70-110)
[2019-12-03 17:03] LABS: Bedside Glucose 248 mg/dL (70-110)
[2019-12-03 17:03] LABS: Bedside Glucose 297 mg/dL (70-110)
--- NOTE | 2019-12-05 14:33 | CASEMGMT ---
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 Contacted Danny who states the patient's step-father has been assisting the patient and requested that I contact him (Tigre Cook at [phone]). Call placed to Tigre. Tigre states that pt lives with him and between himself and the patient's sister they manage the patient's care. Discussed at length discharge follow-up and medications. Tigre states pt has an appointment scheduled for 12/27 but was unclear if this was virtual or [id number] visit. Tigre states that his phone does not have the capability for virtual visits and they use Danny's phone for these visits. Tigre was hoping that they could have a [id number] visit. Discussed patient's discharge medications, prescriptions, and changes from previous home med list. Tigre reports that the patient had not been doing well with self-management of medications and between himself and the patient's sister they were now filling a pill box with patient's meds and administering the meds to Papo three times a day. Tigre reports that he works second shift and has been giving him the last medications when he gets home around 1-1:30AM. Reviewed the previous doses and frequencies of meds prior to admission in comparison to at discharge. Instructed Tigre to continue doses and frequencies of medications as prescribed at discharge and to take only those medications that were listed at discharge. Papo and Tigre both stated that there will not be any valium remaining after tomorrow 12/05. Reviewed that this medication was to be taken as needed and not routinely three times a day but pt and Tigre both report it is being taken three times a day. Tigre states he will give it Papo tomorrow morning and see how he does and determine if he needs a second dose later in the day. It was unclear if pt is continuing to experience dizziness. Tigre states they do not have the Losartan Potassium. He stated he would obtain a supplement until they could get the real medication. Educated Tigre that this medication is not a potassium supplement but is a blood pressure medication and should not be substituted with a supplement for potassium. He states he will call [facility] and see if they had filled the prescription sent at discharge. Tigre does report that Papo has a walker to assist with ambulation and balance. Tigre reports that Papo has lost a lot of muscle mass. He and the patient's sister have been encouraging Papo to ambulate from one room to the other to help maintain strength and prevent further muscle loss. Tigre reports that Papo does not move around much. Tigre also notes pt does not allow them to check blood sugars due to sensitive nerves in his fingers. Papo's sister has a blood pressure cuff and stethoscope and plans to check Papo's blood pressure this evening. Offered to contact Dr. Sandoval's RN JANENE for follow-up and further assistance with Papo's care. Tigre was agreeable to this assistance. Call placed to Lola at [facility]. Concerns regarding needs for medication management/education and follow-up care relayed. Contact numbers for Tigre and Danny also provided. Lola states the pt was contacted today and a follow-up appointment was made for 12/07 at 1500 via a Zoom call. Explained that Danny's phone is used for these calls and that Tigre will be at work at 1500. Lola will follow-up to facilitate the visit and future medication management. Tanja Hill RN CM
--- NOTE | 2019-12-12 16:51 | CASEMGMT ---
Follow-up call placed to patient. Pt states his appointment was rescheduled for 01/04 and is a virtual appointment. Pt states he has been taking his medications as prescribed but does not believe the lower dose of gabapentin is working for his pain. Pt states he has seen a pain specialist in the past but they did not feel injections would be beneficial and the medication that tried was not effective. Encouraged pt to contact Dr. Sandoval' office to see about his dose of gabapentin. He states he will do that. Pt states he is not dizzy anymore and that his blood pressure was down to 138 systolic when his sister checked it. He could not recall the bottom number. Pt states he has been eating better with less fatty foods and he began eating breakfast (corn flakes with a little bit of artificial sweetener). Pt denied any additional concerns. Naty Hill RN CM
== END 2019-12-03 14:20 | disposition home or self-care (01) ==
LOC: ED 14:24 → PCU 16:07
PROVIDERS: Admitting Provider Internal Medicine; Emergency Provider Emergency Medicine; PCP Internal Medicine; Visit Provider Internal Medicine
DX: R42 Dizziness and giddiness (principal); I10 Essential (primary) hypertension; E78.5 Hyperlipidemia, unspecified; E11.42 Type 2 diabetes mellitus with diabetic polyneuropathy; K21.9 Gastro-esophageal reflux disease without esophagitis; G89.29 Other chronic pain; R94.31 Abnormal electrocardiogram [ECG] [EKG]; R00.0 Tachycardia, unspecified; E11.65 Type 2 diabetes mellitus with hyperglycemia; R25.1 Tremor, unspecified; I44.4 Left anterior fascicular block; F79 Unspecified intellectual disabilities; M79.674 Pain in right toe(s); M79.675 Pain in left toe(s); Z79.899 Other long term (current) drug therapy; Z91.14 Patient's other noncompliance with medication regimen; Z79.4 Long term (current) use of insulin; Z79.82 Long term (current) use of aspirin
CPT/HCPCS: 70450; 80048; 82962; 84484; 85025; 93005; 96372; 96374; 96375; 96376; 97162; 99218; 99285; J7030; A4216; G0378; J2405